=== PATIENT | male | born 1995 | race Caucasian/White ===

== ENCOUNTER 2022-02-04 08:00 | Outpatient (RCR) | payer OTHER, SELFPAY ==
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
--- NOTE | 2022-03-23 12:06 | MHC.PT.DC ---
[facility] [place] Office [place] Office [place] Office [address] Dylan Dawkins [address] [phone] F: [phone] F: [phone] F: [phone] F: [phone] Physical Therapy Discharge Report Diagnosis: dorsalgia Date of Surgery: Date of Evaluation: 12/22/21 Date of Discharge: 03/23/22 Treatments to Date: 8 Cancellations to Date: 0 No Shows to Date: 0 Discharge Status: Independent with HEP Visit Non-compliance Discharge Summary: Pt did not f/u with further visits and d/c at this time Electronically signed by: Urszula Briseno PT Please sign and return to therapist. Thank you for your referral.
== END 2022-03-23 12:07 | disposition home or self-care (01) ==
LOC: HO.PT 08:00
PROVIDERS: PCP Internal Medicine; Visit Provider Nurse Practitioner Family
DX: M54.9 Dorsalgia, unspecified (principal)
CPT/HCPCS: 97110; 97112; 97140; 97161

== ENCOUNTER 2022-02-08 12:03 | Outpatient (REF) | payer OTHER, SELFPAY ==
[2022-02-08 12:19] LABS: MANUAL DIFF FLAG NO
[2022-02-08 13:24] LABS: Basophils Percent Auto 0.4 % (0-2); Eosinophils Absolute Auto 0.1 X10*3/uL (0.0-0.4); Eosinophils Percent Auto 1.4 % (0-4); Hematocrit 42.7 % (42.0-52.0); Hemoglobin 14.2 g/dl (14.0-18.0); Imm Gran Abs Auto 0.01 X10*3/uL (0.00-0.03); Imm Gran Pct Auto 0.2 % (0.0-0.4); Lymphocytes Absolute Auto 1.6 X10*3/uL (1.2-4.9); Lymphocytes Percent Auto 32.3 % (20-40); Mean Corpuscular HGB Conc 33.3 g/dl (31.0-36.0); Mean Corpuscular Hemoglobin 29.8 pg (27.0-33.0); Mean Corpuscular Volume 89.7 fL (80.0-98.0); Monocytes Absolute Auto 0.4 X10*3/uL (0.1-1.2); Monocytes Percent Auto 7.9 % (2-11); Neutrophils Absolute Auto 2.9 x10*3/uL (2.0-8.3); Neutrophils Percent Auto 57.8 % (45-73); Platelet Count 243 X10*3/uL (160-400); Red Blood Count 4.76 X10*6/uL (4.60-5.80); Red Cell Distribution Width 12.1 % (11.0-16.0); White Blood Count 4.9 X10*3/uL (4.8-10.8)
[2022-02-08 13:47] LABS: Alanine Aminotransferase 25 U/L (0-40); Albumin Level 4.7 g/dL (3.5-5.0); Alkaline Phosphatase 58 U/L (39-117); Anion Gap 12 (12-20); Aspartate Amino Transferase 21 U/L (5-37); Bilirubin Total 0.7 mg/dL (0.0-1.0); Blood Urea Nitrogen 12 mg/dL (9-16); Calcium 9.4 mg/dL (8.4-10.2); Carbon Dioxide 27 mmol/L (22-29); Chloride 106 mmol/L (96-108); Cholesterol 189 mg/dL; Estimated Glomerular Filt Rate > 60; Glucose Random 103 mg/dL (60-115); HDL Cholesterol 84 mg/dL; LDL Cholesterol Calculated 99 mg/dl; Potassium 4.9 mmol/L (3.3-5.1); Sodium 140 mmol/L (135-145); Total Protein 7.1 g/dL (6.5-8.0); Triglycerides 32 mg/dL
[2022-02-08 14:08] LABS: Free T4 (Free Thyroxine) 0.93 ng/dL (0.71-1.85); Thyroid Stimulating Hormone 1.21 uIU/mL (0.32-4.0)
[2022-02-08 14:19] LABS: Folate 11.9 ng/mL (> or = 4.0); Vitamin B12 600 pg/mL (200-900)
== END 2022-02-08 12:04 | disposition home or self-care (01) ==
LOC: HO.LAB 12:03
PROVIDERS: PCP Internal Medicine; Visit Provider Internal Medicine
DX: K21.9 Gastro-esophageal reflux disease without esophagitis (principal); E78.00 Pure hypercholesterolemia, unspecified
CPT/HCPCS: 36415; 80053; 80061; 82607; 82746; 84439; 84443; 85025

== ENCOUNTER 2022-03-16 09:51 | Outpatient (REF) | payer OTHER, SELFPAY ==
--- NOTE | ~2022-03-16 | XR_ITS ---
EXAMINATION: XR THORACOLUMBAR SPINE CLINICAL INFORMATION: Radiculopathy. Pain COMPARISON: None TECHNIQUE: 3 views FINDINGS: There is normal thoracic kyphosis.. There is a hypoplastic T12 ribs There is anterior wedging of T7 vertebra of indeterminate age. Rest the vertebral heights and alignment is normal. There is mild loss of mid and lower dorsal spine disc heights. No lytic or sclerotic process seen. The paravertebral soft tissues are normal. XR/XR thoracic spine 2V IMPRESSION: Anterior wedging of T7 vertebra of indeterminate age. Hypoplastic T12 ribs. No visible acute fracture, dislocation or subluxation seen.
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
== END 2022-03-16 09:52 | disposition home or self-care (01) ==
LOC: HO.XRAY 09:51
PROVIDERS: PCP Internal Medicine; Visit Provider Physician Assistant
DX: S46.812D Strain of other muscles, fascia and tendons at shoulder and upper arm level, left arm, subsequent encounter (principal); M54.14 Radiculopathy, thoracic region; X58.XXXD Exposure to other specified factors, subsequent encounter
CPT/HCPCS: 72070; 73010

== ENCOUNTER → 2022-09-03 09:04 | Outpatient (BNVA) | payer OTHER, SELFPAY | PROVIDERS: PCP Internal Medicine; Visit Provider Surgery | DX: L05.91 Pilonidal cyst without abscess (principal) | CPT/HCPCS: 99202 ==

== ENCOUNTER 2022-10-05 19:47 | Outpatient (REF) | payer OTHER, SELFPAY ==
--- NOTE | ~2022-10-05 | MR_ITS ---
EXAMINATION: MR CERVICAL SPINE WITHOUT CONTRAST CLINICAL INFORMATION: Cervical radiculopathy. COMPARISON: None available. TECHNIQUE: MRI of the cervical spine was obtained using routine sequences without contrast. FINDINGS: Normal anatomic alignment. Moderate degenerative disc disease from C3-C6. Mild degenerative disc disease at C2-C3 and C6-C7. Associated mixed Modic type discogenic endplate changes including mild Modic type I discogenic edema at C5-C6. No additional suspicious marrow edema. The vertebral body heights are well-maintained. The spinal cord is normal in appearance. Limited evaluation of the soft tissues of the neck without demonstrated abnormalities. The flow voids of the major cervical vessels are maintained. Normal appearance of the cervicomedullary junction and visualized posterior fossa. SPINAL LEVELS: C2-C3: Normal annular contour. There is no uncovertebral joint arthropathy. There is no facet joint arthropathy. There is no neural foraminal stenosis. There is no spinal canal stenosis. C3-C4: Mild disc-osteophyte complex. There is no uncovertebral joint arthropathy. There is mild bilateral facet joint arthropathy. There is no neural foraminal stenosis. There is no spinal canal stenosis. C4-C5: Mild disc-osteophyte complex. There is mild right and no left uncovertebral joint arthropathy. There is mild bilateral facet joint arthropathy. There is mild right and no left neural foraminal stenosis. There is no spinal canal stenosis. C5-C6: Mild disc-osteophyte complex. There is mild bilateral uncovertebral joint arthropathy. There is moderate right and mild left facet joint arthropathy. There is mild bilateral neural foraminal stenosis. There is no spinal canal stenosis. C6-C7: Normal annular contour. There is mild left and no right uncovertebral joint arthropathy. There is mild facet joint arthropathy. There is mild left and no right neural foraminal stenosis. There is no spinal canal stenosis. C7-T1: Normal annular contour. There is no uncovertebral joint arthropathy. There is no facet joint arthropathy. There is no neural foraminal stenosis. There is no spinal canal stenosis. MR/MR cervical spine wo con IMPRESSION: Mild multilevel degenerative spondyloarthropathy of the cervical spine as described in detail above. Most notably, there are mild neural foraminal narrowings from C4-C7. No overt spinal canal stenosis or nerve root compression.
== END 2022-10-05 19:48 | disposition home or self-care (01) ==
LOC: HO.MRI 19:47
PROVIDERS: PCP Internal Medicine; Visit Provider Internal Medicine
DX: M54.12 Radiculopathy, cervical region (principal)
CPT/HCPCS: 72141

== ENCOUNTER → 2022-10-14 15:52 | Outpatient (BNVA) | payer OTHER, SELFPAY | PROVIDERS: PCP Internal Medicine; Visit Provider Nurse Practitioner Family | DX: K58.0 Irritable bowel syndrome with diarrhea (principal); K21.9 Gastro-esophageal reflux disease without esophagitis; Z79.899 Other long term (current) drug therapy | CPT/HCPCS: 99202 ==

== ENCOUNTER 2022-10-28 09:06 | Outpatient (REF) | payer OTHER, SELFPAY ==
[2022-10-28 13:51] LABS: Alanine Aminotransferase 35 U/L (0-40); Albumin Level 4.6 g/dL (3.5-5.0); Alkaline Phosphatase 77 U/L (39-117); Aspartate Amino Transferase 25 U/L (5-37); Bilirubin Direct < 0.2 mg/dL (0.0-0.5); Bilirubin Total 0.6 mg/dL (0.0-1.0); Lipase 15 U/L (8-78)
[2022-10-28 14:06] LABS: Folate 12.3 ng/mL (> or = 4.0); TSH reflex Free T4 1.66 uIU/mL (0.32-4.0); Vitamin B12 582 pg/mL (200-900)
[2022-10-29 15:06] LABS: H Pylori Breath Test Negative (Negative)
[2022-11-02 23:09] LABS: Vitamin D 25-OH, D2 <4 ng/mL; Vitamin D 25-OH, D3 36 ng/mL; Vitamin D 25-OH, Total 36 ng/mL (30-100)
[2022-11-06 12:48] LABS: Transglutaminase Ab IgG <1.0 U/mL; Transglutaminase IgA <1.0 U/mL
== END 2022-10-28 09:07 | disposition home or self-care (01) ==
LOC: HO.LAB 09:06
PROVIDERS: PCP Internal Medicine; Visit Provider Nurse Practitioner Family
DX: R10.9 Unspecified abdominal pain (principal); E55.9 Vitamin D deficiency, unspecified; K20.90 Esophagitis, unspecified without bleeding; K59.00 Constipation, unspecified; R19.7 Diarrhea, unspecified
CPT/HCPCS: 36415; 80076; 82306; 82607; 82746; 83013; 83690; 84443; 86003; 86364

== ENCOUNTER → 2022-11-18 14:59 | Outpatient (BNVA) | payer OTHER, SELFPAY | PROVIDERS: PCP Internal Medicine; Visit Provider Nurse Practitioner Family | DX: R19.7 Diarrhea, unspecified (principal); K21.9 Gastro-esophageal reflux disease without esophagitis | CPT/HCPCS: 99212 ==

== ENCOUNTER 2022-11-18 15:32 | Outpatient (REF) | payer OTHER, SELFPAY ==
[2022-11-18 17:58] LABS: C Reactive Protein 0.13 mg/dL (< or = 0.50)
== END 2022-11-18 15:33 | disposition home or self-care (01) ==
LOC: HO.LAB 15:32
PROVIDERS: Visit Provider Nurse Practitioner Family
DX: K58.9 Irritable bowel syndrome, unspecified (principal); R19.7 Diarrhea, unspecified; K21.9 Gastro-esophageal reflux disease without esophagitis
CPT/HCPCS: 36415; 86140

== ENCOUNTER 2023-06-13 16:10 | Outpatient (AMB) | payer OTHER, SELFPAY ==
[2023-06-13 16:14] VITALS: BP 119/64; PULSE 83; BMI 26.6
--- NOTE | 2023-06-13 16:14 | MHC.OFFVIS ---
Intake Vital Signs 06/13/23 16:14 Height 5 ft 6 in Weight 164 lb 9.328 oz BMI 26.6 BP 119/64 Blood Pressure Location Rt brachial Position Sitting Pulse 83 Intake Visit Reasons: 6 month fu Intake Note: Aneesh presents in office today in 6 months follow up GERD. CC: Patient reports having diarrhea every day and occasional nausea when he does not eat on time. He states GERD is well managed with medications. Denies other GI symptoms today. Casing Splitter Required: No Accompanied by: Self / Same As Patient Allergies Sulfa (Sulfonamide Antibiotics) Allergy (Unknown, Verified 06/13/23 16:18) unknown HPI 6 month fu HPI Details LAST VISIT: Diarrhea Patient continues to have loose stools. Not necessary postprandially. Patient denies any abdominal pain or cramping. Denies abdominal bloating postprandially. Patient denies any melena, hematochezia, unintentional weight loss or ribbon like stools. Will order CRP to rule out inflammatory processes. Will check for inflammatory bowel disease. Fecal calprotectin ordered. If positive patient will go for colonoscopy and upper endoscopy. Patient denies any family history of inflammatory bowel disease GERD (gastroesophageal reflux disease) Patient reports that when he was taking omeprazole he was feeling better less symptoms of acid reflux. I will send a script for omeprazole. Patient had no H pylori. If patient continues with symptoms of acid reflux we will send him for upper endoscopy. I will see patient in 6 months, sooner on as needed basis. Patient is agreeable to this plan and verbalizes understanding of instructions. He was given the opportunity to ask questions and all questions answered. TODAY'S VISIT Patient is here today for follow-up. Patient reports that he continues to have occasional postprandial loose stools. Patient did notice that when he changed some of the diet he was feeling little better. Patient denies any nausea or vomiting although reports occasional nausea if he does in eat for few hours. Patient is taking omeprazole daily. His symptoms of acid reflux are suppressed for the most part. Patient denies vomiting. Denies melena, hematochezia, unintentional weight loss or ribbon like stools. Patient had normal CRP, no H pylori. Patient reports occasional postprandial abdominal bloating ? [facility] Medical History Asthma Overweight (BMI 25.0-29.9) Fracture of left distal radius Surgical History [place] teeth removed Family History Father Lung cancer Mother Skin cancer Sister No problems noted. Sister No problems noted. Sister No problems noted. Maternal Grandmother No problems noted. Paternal Grandfather Lung cancer Maternal Aunt Breast cancer Maternal Uncle Prostate cancer Social History Housing: House Alcohol intake: current Alcohol intake frequency: holidays/special occasions only Patient Tobacco Use Status: Former Tobacco user Tobacco use type: Cigarette Years Smoked: quit 2015 e-Cigarette/Vaping Use: Never Used Second Hand Smoke Exposure: No Current occupational status: employed Cognitive needs: No Hearing needs: No Vision needs: Yes Review of Systems Const Denies weight gain and Denies weight loss ENT Reports no additional complaints, Denies dysphagia and Denies odynophagia Card Reports no additional complaints Resp Reports no additional complaints GI Denies abdominal pain, Denies belching, Denies melena, Reports bloating, Denies change in bowel habits, Denies dysphagia, Denies excessive flatus, Denies dyspepsia, Reports heartburn, Denies diarrhea, Reports loose stools, Reports nausea, Denies odynophagia and Denies vomiting Reports no additional complaints Musc Reports no additional complaints Neuro Reports no additional complaints Psych Reports no additional complaints Endo Reports no additional complaints Physical Exam Vital Signs: Last Vital Signs Pulse 83 06/13/23 16:14 BP 119/64 06/13/23 16:14 BMI result Body Mass Index 26.6 Const General: healthy appearing, no acute distress and well developed Nutritional Appearance: well nourished Orientation/consciousness: patient oriented x3 HEENT Head: Yes normal to inspection, Yes normocephalic and Yes atraumatic Face and sinus: Yes normal facial exam Mouth: Normal oral and palatal mucosa present Throat: Yes posterior oropharynx normal, Yes tonsils normal and Yes uvula midline Eyes General: appearance normal, both eyes and all related structures Neck Neck: Yes normal visual inspection, Yes full ROM and Yes trachea midline Thyroid: Thyroid normal Resp Effort & Inspection: normal respiratory effort, able to speak in complete sentences, no tracheal deviation and symmetric chest movement Auscultation: clear to auscultation bilaterally Cardio Rate: regular rate Heart sounds: S1 normal heart sound present and S2 normal heart sound present GI Inspection: Yes normal to inspection and No distended Palpation (GI): Soft to palpation, not firm, nontender and No hepatosplenomegaly present Auscultation: normal bowel sounds General: Yes no CVA tenderness Back/Spine/Pelvis Back: no CVA tenderness Skin General skin exam: elasticity normal, turgor normal and dry skin Neuro General: patient oriented x3 Psych Appearance: grossly normal Mental Status: mental status grossly normal Assessment & Plan Assessment & Plan (1) Diarrhea: Code(s): R19.7 - Diarrhea, unspecified Qualifiers: Diarrhea type: unspecified type Qualified Code(s): R19.7 - Diarrhea, unspecified (2) GERD (gastroesophageal reflux disease): Code(s): K21.9 - Gastro-esophageal reflux disease without esophagitis Qualifiers: Esophagitis presence: esophagitis presence not specified Qualified Code(s): K21.9 - Gastro-esophageal reflux disease without esophagitis (3) Postprandial abdominal bloating: Code(s): R14.0 - Abdominal distension (gaseous) (4) Nausea: Code(s): R11.0 - Nausea Plan Patient can continue taking omeprazole every morning half an hour before 1st meal of the day. Patient was encouraged to eat more often do not skip meals. Low FODMAP diet discussed with patient. Patient does not empty his bowels completely. Hence diarrhea as patient is unable to empty. Will send script for Senokot. Patient was encouraged to take Citrucel 2 tablets in the morning to help him bulk his stools. CRP was negative so unlikely IBD most likely irritable bowel with both diarrhea and constipation. Discussed with patient avoiding dietary triggers and late night snacking. Staying upright for minimum 3 hours after meals discussed with patient. Patient will think about going for upper endoscopy if symptoms will continue. Information regarding upper endoscopy procedure, what to expect before during and after the procedure given to patient. I will see him in 3 months, sooner on as needed basis. Patient is agreeable to this plan and verbalizes understanding of instructions. He was given the opportunity to ask questions and all questions answered. Thank you for allowing me to participate in his care Medications: New famotidine (Pepcid) 20 mg PO BEDTIME 30 tabs 3RF K21.9 - Gastro-esophageal reflux disease without esophagitis sennosides (Natural Senna Laxative) 17.2 mg (2 x 8.6 mg) PO BEDTIME 60 tabs 1RF constipation K59.00 - Constipation, unspecified Changed From methylcellulose (laxative) take it with full glass of water 500 mg PO DAILY 90 tabs 2RF K59.00 - Constipation, unspecified To methylcellulose (laxative) (Citrucel) take it with full glass of water 1,000 mg (2 x 500 mg) PO DAILY 180 tabs 2RF K59.00 - Constipation, unspecified Coding Level of Care Code Est Pt Level 4 (80190) Diagnoses Diarrhea, unspecified type R19.7 Diarrhea type: unspecified type Gastroesophageal reflux disease, unspecified whether esophagitis present K21.9 Esophagitis presence: esophagitis presence not specified Postprandial abdominal bloating R14.0 Nausea R11.0 Time Spent (min) 35 Comment 20 minutes spent with patient and additional 15 minutes spent reviewing his records
== END 2023-06-13 17:08 | disposition home or self-care (01) ==
PROVIDERS: Visit Provider Nurse Practitioner Family
DX: R19.7 Diarrhea, unspecified (principal); K21.9 Gastro-esophageal reflux disease without esophagitis; R14.0 Abdominal distension (gaseous); R11.0 Nausea
CPT/HCPCS: 99214

== ENCOUNTER → 2023-06-13 16:10 | Outpatient (BNVA) | payer OTHER, SELFPAY | PROVIDERS: Visit Provider Nurse Practitioner Family | DX: K21.9 Gastro-esophageal reflux disease without esophagitis (principal); R19.7 Diarrhea, unspecified; R14.0 Abdominal distension (gaseous); R11.0 Nausea | CPT/HCPCS: 99212 ==

== ENCOUNTER 2023-08-04 18:19 | Emergency (ER) | payer OTHER, SELFPAY ==
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
[2023-08-04 18:58] VITALS: BP 132/71; PULSE 90; RESP 16; TEMP 36.6; O2SAT 98; BMI 28.4
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
[2023-08-04 20:18] VITALS: BP 146/83; PULSE 91; RESP 16; TEMP 36.9; O2SAT 96
[2023-08-04] MEDS: Acetaminophen 325 MG TABLET 975 MG PO (20:20)
[2023-08-04] MEDS: Ibuprofen 400 MG TABLET PO (20:21)
[2023-08-04] MEDS: Diphth,Pertus(ACell),Tet Adult 0.5 ML SYRINGE IM (20:21)
[2023-08-04 21:57] VITALS: BP 113/62; PULSE 73; RESP 16; TEMP 36.7; O2SAT 98
[2023-08-04] MEDS: Lidocaine 4 % Patch ADH..PATCH 1 PATCH TRANSDERMA (22:58)
== END 2023-08-04 23:05 | disposition home or self-care (01) ==
PROVIDERS: Emergency Provider Student in an Organized Health Care Education/Training Program; PCP Internal Medicine
DX: Z04.1 Encounter for examination and observation following transport accident (principal); M62.838 Other muscle spasm; M79.18 Myalgia, other site; R51.9 Headache, unspecified
CPT/HCPCS: 70450; 71250; 72125; 90471; 90715; 99284

== ENCOUNTER 2023-08-16 11:13 | Outpatient (AMB) | payer OTHER, SELFPAY ==
[2023-08-16 11:19] VITALS: BP 150/80; PULSE 79; O2SAT 98; BMI 27.2
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
== END 2023-08-16 11:50 | disposition home or self-care (01) ==
PROVIDERS: PCP Internal Medicine; Visit Provider Internal Medicine
DX: M54.2 Cervicalgia (principal); M54.9 Dorsalgia, unspecified; V89.2XXD Person injured in unspecified motor-vehicle accident, traffic, subsequent encounter; Z04.3 Encounter for examination and observation following other accident
CPT/HCPCS: 99214

== ENCOUNTER 2023-08-30 13:50 | Outpatient (AMB) | payer OTHER, SELFPAY ==
[2023-08-30 13:54] VITALS: BP 132/70; PULSE 72; O2SAT 100; BMI 26.8
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
== END 2023-08-30 14:36 | disposition home or self-care (01) ==
PROVIDERS: PCP Internal Medicine; Visit Provider Internal Medicine
DX: M54.9 Dorsalgia, unspecified (principal); M54.2 Cervicalgia; V89.2XXD Person injured in unspecified motor-vehicle accident, traffic, subsequent encounter; Z04.2 Encounter for examination and observation following work accident
CPT/HCPCS: 99213

== ENCOUNTER 2023-09-12 15:58 | Outpatient (AMB) | payer OTHER, SELFPAY ==
[2023-09-12 16:01] VITALS: BP 131/74; PULSE 76; BMI 26.5
--- NOTE | 2023-09-12 16:01 | A.OFFVIS_ITS ---
Intake Vital Signs 09/12/23 16:01 Height 5 ft 6 in Weight 164 lb 0.383 oz BMI 26.5 BP 131/74 Blood Pressure Location Lt brachial Position Sitting Pulse 76 Intake Visit Reasons: 3 month follow up Intake Note: Aneesh presents in office today in 3 months follow up GERD. CC: Patient reports diarrhea and nausea are a little less . He also reports some abdominal bloating. Per patient GERD symptoms are well managed as long as he does not miss any dose of the omeprazole and famotidine. 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 Patient was encouraged to eat more often do not skip meals. Low FODMAP diet discussed with patient. Patient does not empty his bowels completely. Hence diarrhea as patient is unable to empty. Will send script for Senokot. Patient was encouraged to take Citrucel 2 tablets in the morning to help him bulk his stools. CRP was negative so unlikely IBD most likely irritable bowel with both diarrhea and constipation. Discussed with patient avoiding dietary triggers and late night snacking. Staying upright for minimum 3 hours after meals discussed with patient. Patient will think about going for upper endoscopy if symptoms will continue. Information regarding upper endoscopy procedure, what to expect before during and after the procedure given to patient. I will see him in 3 months, sooner on as needed basis. Patient is agreeable to this plan and verbalizes understanding of instructions. He was given the opportunity to ask questions and all questions answered. ? Thank you for allowing me to participate in his care Medications New famotidine (Pepcid) 20 mg PO BEDTIME 30 tabs 3RF K21.9 sennosides (Natural Senna Laxative) 17.2 mg (2 x 8.6 mg) PO BEDTIME 60 tabs 1RF constipation K59.00 Changed Changed From methylcellulose (laxative) take it with full glass of water 500 mg PO DAILY 90 tabs 2RF K59.00 Changed To methylcellulose (laxative) (Citrucel) take it with full glass of water 1,000 mg (2 x 500 mg) PO DAILY 180 tabs 2RF K59.00 TODAY'S VISIT: Patient is here today for follow-up. Patient reports that he has been feeling little better, however he continues to have occasional loose stools postprandially. Patient reports that he changed his diet, eating healthier. However he does report that he stopped taking Citrucel. He will try to start taking Citrucel again. He did notice help when he was taking it. Patient is taking omeprazole every morning and states that his symptoms of acid reflux are suppressed when he takes it. When he does not take it for day or 2 he reports that he will have epigastric burning and dyspepsia without dysphagia or jie nophagia. Patient reports that he is eating smaller meals and more often. Patient states that he is trying to prep his meals PFSH Medical History Asthma Overweight (BMI 25.0-29.9) Fracture of left distal radius Surgical History [place] teeth removed Family History Father Lung cancer Mother Skin cancer Sister No problems noted. Sister No problems noted. Sister No problems noted. Maternal Grandmother No problems noted. Paternal Grandfather Lung cancer Maternal Aunt Breast cancer Maternal Uncle Prostate cancer Social History Housing: House Alcohol intake: current Alcohol intake frequency: holidays/special occasions only Patient Tobacco Use Status: Former Tobacco user Tobacco use type: Cigarette Years Smoked: quit 2015 e-Cigarette/Vaping Use: Never Used Second Hand Smoke Exposure: No service: No Current occupational status: employed Cognitive needs: No Hearing needs: No Vision needs: Yes Review of Systems Const Denies weight gain and Denies weight loss ENT Reports no additional complaints, Denies dysphagia and Denies odynophagia Card Reports no additional complaints Resp Reports no additional complaints GI Denies abdominal pain, Denies belching, Denies melena, Denies bloating, Denies change in bowel habits, Denies dysphagia, Denies excessive flatus, Denies dyspepsia, Reports heartburn (Occasional), Denies diarrhea, Reports loose stools (Occasional), Denies nausea, Denies odynophagia and Denies vomiting Reports no additional complaints Musc Reports no additional complaints Neuro Reports no additional complaints Psych Reports no additional complaints Endo Reports no additional complaints Physical Exam Vital Signs: Last Vital Signs Pulse 76 09/12/23 16:01 BP 131/74 09/12/23 16:01 BMI result Body Mass Index 26.5 Const General: healthy appearing, no acute distress and well developed Nutritional Appearance: well nourished Orientation/consciousness: patient oriented x3 Resp Effort & Inspection: normal respiratory effort, able to speak in complete sentences, no tracheal deviation and symmetric chest movement Auscultation: clear to auscultation bilaterally Cardio Rate: regular rate GI Inspection: Yes normal to inspection and No distended Palpation (GI): Soft to palpation, not firm, nontender and No hepatosplenomegaly present Auscultation: normal bowel sounds General: Yes no CVA tenderness Back/Spine/Pelvis Back: no CVA tenderness Skin General skin exam: elasticity normal, turgor normal and dry skin Neuro General: patient oriented x3 Psych Appearance: grossly normal Mental Status: mental status grossly normal Assessment & Plan Assessment & Plan (1) Diarrhea: Code(s): R19.7 - Diarrhea, unspecified Qualifiers: Diarrhea type: unspecified type Qualified Code(s): R19.7 - Diarrhea, unspecified (2) GERD (gastroesophageal reflux disease): Code(s): K21.9 - Gastro-esophageal reflux disease without esophagitis Qualifiers: Esophagitis presence: esophagitis presence not specified Qualified Code(s): K21.9 - Gastro-esophageal reflux disease without esophagitis (3) Postprandial abdominal bloating: Code(s): R14.0 - Abdominal distension (gaseous) (4) Nausea: Code(s): R11.0 - Nausea (5) Postprandial epigastric pain: Code(s): R10.13 - Epigastric pain Plan Patient will continue taking omeprazole daily. I will send him for upper endoscopy to rule out gastritis, duodenitis, esophagitis, gastric or peptic ulcers, Chang's. Patient continues to have epigastric pain when he misses a dose of omeprazole even for 1 day. Continue diet elimination. Avoid dietary triggers and late night snacking. Staying upright for minimum 3 hours after meals discussed with patient. I will see him after the procedure, sooner on as needed basis. Patient is agreeable to this plan and verbalizes understanding of instructions. He was given the opportunity to ask questions and all questions answered. Thank you for allowing me to participate in his care Orders: Orders Hemoglobin A1c Today E11.9 - Type 2 diabetes mellitus without complications Medications: Refilled sennosides (Natural Senna Laxative) 17.2 mg (2 x 8.6 mg) PO BEDTIME 60 tabs 1RF constipation K59.00 - Constipation, unspecified methylcellulose (laxative) (Citrucel) take it with full glass of water 1,000 mg (2 x 500 mg) PO DAILY 180 tabs 2RF K59.00 - Constipation, unspecified omeprazole 20 mg PO DAILY 90 caps 2RF Coding Level of Care Code Est Pt Level 4 (94266) Diagnoses Diarrhea, unspecified type R19.7 Diarrhea type: unspecified type Gastroesophageal reflux disease, unspecified whether esophagitis present K21.9 Esophagitis presence: esophagitis presence not specified Postprandial abdominal bloating R14.0 Nausea R11.0 Postprandial epigastric pain R10.13 Time Spent (min) 35 Comment 20 minutes spent with patient and additional 15 minutes spent reviewing his records
== END 2023-09-12 16:26 | disposition home or self-care (01) ==
PROVIDERS: PCP Internal Medicine; Visit Provider Nurse Practitioner Family
DX: R19.7 Diarrhea, unspecified (principal); K21.9 Gastro-esophageal reflux disease without esophagitis; R14.0 Abdominal distension (gaseous); R11.0 Nausea; R10.13 Epigastric pain
CPT/HCPCS: 99214

== ENCOUNTER → 2023-09-12 15:58 | Outpatient (BNVA) | payer OTHER, SELFPAY | PROVIDERS: PCP Internal Medicine; Visit Provider Nurse Practitioner Family | DX: K21.9 Gastro-esophageal reflux disease without esophagitis (principal); R19.7 Diarrhea, unspecified; R14.0 Abdominal distension (gaseous); R11.0 Nausea; R10.13 Epigastric pain | CPT/HCPCS: 99212 ==

== ENCOUNTER 2023-09-26 12:31 | Day surgery (SDC) | payer OTHER, SELFPAY ==
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
[2023-09-26 13:06] VITALS: BMI 27.4
[2023-09-26 13:28] VITALS: BP 126/72; PULSE 71; RESP 16; TEMP 36.6; O2SAT 100
[2023-09-26] MEDS: Lactated Ringers 1,000 ML 100 ML IVCONT (13:30)
--- NOTE | 2023-09-26 13:47 | P.HPSUR_ITS ---
Pre-Procedural Eval Section A - 24 Hr Update-Section A only Date of Service: 09/26/23 The patient has been examined within 24 hours of the surgical procedure. The History & Physical has been completed within 30 days and I have reviewed it.: No Section B - Complete if H&P > 30 days Chief Complaint: GERD, post prandial bloating and diarrhea Relevant Family History (Specify if Yes): No Relevant Social History: Tobacco Use (former smoker) Present Medications: see Short Stay Collaborative assessment Medical History: Significant History (Asthma Overweight (BMI 25.0-29.9) Fracture of left distal radius) History of Previous Operations: Relevant previous surgery/procedure and date(s) ([place] teeth removed) Allergies: Allergies Allergy/AdvReac Type Severity Reaction Status Date / Time Sulfa (Sulfonamide Allergy Unknown unknown Verified 09/26/23 13:11 Antibiotics) Review of Systems Sugical H&P ROS: Negative: Constitution, Cardiovascular and Respiratory Exam Surgical H&P Exam: Normal: Heart, Normal: Lungs, Normal: Extremities and Normal: Abdomen Plan Diagnosis/Plan: Unchanged I have reviewed the history and physical and performed a pertinent physical examination on my patient. No changes have occurred unless specified. Time Spent With Patient Time: Total time managing care of this patient today ____ minutes.
--- NOTE | 2023-09-26 14:58 | P.OP_ITS ---
Operative Note Operative Note Date of Service: 09/26/23 Narrative: FLEXIBLE TRANSORAL UPPER GASTROINTESTINAL ENDOSCOPY WITH BIOPSIES Pre-op diagnosis: GERD, post prandial bloating and diarrhea Post-op diagnosis: GERD, hiatal hernia, gastritis Endoscopist:? Fior Queen MD Anesthesia:?MAC Consent: Indications for the procedure and potential complications of bleeding, perforation, reaction to medications and missed diagnosis were discussed with the patient and informed consent was obtained. Instrument: Olympus GIF H 190 mid size upper endoscope Monitoring: Vital signs and clinical assessment, continuous EKG monitoring, Pulse oximetry, Carbon Dioxide monitoring and blood pressure monitoring were done throughout the procedure. Procedure: The patient was placed in the left lateral decubitis position and pre-procedure medications were administered and a bite block was placed. The endoscope was inserted into the mouth and advanced under direct vision to the third part of duodenum. A careful inspection was made as the upper endoscope was withdrawn including a retroflexed examination of the proximal stomach; Findings and interventions are described below. Findings: Larynx: Edema and erythema of the arytenoid cartilages Esophagus: GE junction at 34 cms, small hiatal hernia 34 to 36 cms. Two 5 to 10 mm tongues and a 1 cms island of possible Chang's - biopsies were obtained for pathology and Tissue Cypher Stomach: Mild gastric erythema. Biopsies were obtained. Grade 2 flap valve on retroflexed examination of the cardia. Duodenum: Normal bulb and descending duodenum. Biopsies are obtained from 3rd part of the duodenum to check for celiac sprue Intervention: Biopsies as noted above Impression and Post Procedure Diagnosis: Endoscopy Findings: LARYNX: Changes suggestive of LPRD ESOPHAGUS: GE junction at 34 cms, small hiatal hernia 34 to 36 cms. Two 5 to 10 mm tongues and a 1 cms island of possible Chang's - biopsies were obtained for pathology and tissue cypher STOMACH: Moderate gastritis DUODENUM: Normal - biopsied to check for celiac sprue. Plan: Await pathology results. If biopsies show Chang's metaplasia, repeat EGD in 1 year. Patient has an appointment on 10/24/23 in the GI Clinic with Maricruz Orozco FNP- [place]. Above findings were reviewed with the patient and GERD and Hiatal hernia handouts were given in the discharge area If pt continues to have GERD symptoms, recommend increasing Omeprazole to 20 mg twice daily.
[2023-09-26 15:25] VITALS: BP 97/56; PULSE 60; RESP 12; TEMP 36.1; O2SAT 97
[2023-09-26 15:40] VITALS: BP 113/65; PULSE 60; RESP 16; TEMP 36.2; O2SAT 100
== END 2023-09-26 15:58 | disposition home or self-care (01) ==
PROVIDERS: PCP Internal Medicine; Visit Provider Internal Medicine Gastroenterology
PROC: 0DJ08ZZ Inspection of Upper Intestinal Tract, Via Natural or Artificial Opening Endoscopic (ICD-10-PCS; CPT 43235; principal; 2023-09-26 14:30)
DX: K29.60 Other gastritis without bleeding (principal); K44.9 Diaphragmatic hernia without obstruction or gangrene; K21.9 Gastro-esophageal reflux disease without esophagitis; Z87.19 Personal history of other diseases of the digestive system
CPT/HCPCS: 43239; 88305; 88313; 88342; J2250; J2704

== ENCOUNTER → 2023-09-26 12:31 | Outpatient (BNV) | payer OTHER, SELFPAY | PROVIDERS: PCP Internal Medicine; Visit Provider Internal Medicine Gastroenterology | DX: K21.9 Gastro-esophageal reflux disease without esophagitis (principal); K29.70 Gastritis, unspecified, without bleeding; R19.7 Diarrhea, unspecified | CPT/HCPCS: 43239 ==

== ENCOUNTER 2023-10-04 12:36 | Outpatient (AMB) | payer OTHER, SELFPAY ==
[2023-10-04 12:39] VITALS: BP 112/72; PULSE 73; O2SAT 98; BMI 27.6
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
== END 2023-10-04 13:06 | disposition home or self-care (01) ==
PROVIDERS: PCP Internal Medicine; Visit Provider Internal Medicine
DX: M54.9 Dorsalgia, unspecified (principal); M54.2 Cervicalgia; V89.2XXD Person injured in unspecified motor-vehicle accident, traffic, subsequent encounter; Z04.3 Encounter for examination and observation following other accident
CPT/HCPCS: 99213

== ENCOUNTER 2023-10-24 14:38 | Outpatient (AMB) | payer OTHER, SELFPAY ==
[2023-10-24 14:40] VITALS: BMI 27.3
--- NOTE | 2023-10-24 14:40 | A.OFFVIS_ITS ---
Intake Vital Signs 10/24/23 14:40 Height 5 ft 6 in Weight 169 lb 5.04 oz BMI 27.3 Blood Pressure Location Lt brachial Position Sitting Intake Visit Reasons: s/p egd Intake Note: Aneesh returns in follow up s/p EGD . CC: Pt underwent EGD by Dr. Queen on 09/26/23. Patient reports doing alright. He continues having diarrhea but states heartburn is good with Omeprazole Allergies Sulfa (Sulfonamide Antibiotics) Allergy (Unknown, Verified 10/24/23 14:44) unknown HPI s/p egd HPI Details LAST VISIT Diarrhea GERD (gastroesophageal reflux disease) Postprandial abdominal bloating Nausea Postprandial epigastric pain Plan Patient will continue taking omeprazole daily. I will send him for upper endoscopy to rule out gastritis, duodenitis, esophagitis, gastric or peptic ulcers, Chang's. Patient continues to have epigastric pain when he misses a dose of omeprazole even for 1 day. Continue diet elimination. Avoid dietary triggers and late night snacking. Staying upright for minimum 3 hours after meals discussed with patient. I will see him after the procedure, sooner on as needed basis. Patient is agreeable to this plan and verbalizes understanding of instructions. He was given the opportunity to ask questions and all questions answered. ? Thank you for allowing me to participate in his care Orders Orders Hemoglobin A1c Today E11.9 Medications Refilled sennosides (Natural Senna Laxative) 17.2 mg (2 x 8.6 mg) PO BEDTIME 60 tabs 1RF constipation K59.00 methylcellulose (laxative) (Citrucel) take it with full glass of water 1,000 mg (2 x 500 mg) PO DAILY 180 tabs 2RF K59.00 omeprazole 20 mg PO DAILY 90 caps 2RF UPPER ENDOSCOPY Findings: Larynx: Edema and erythema of the arytenoid cartilages Esophagus: GE junction at 34 cms, small hiatal hernia 34 to 36 cms. Two 5 to 10 mm tongues and a 1 cms island of possible Chang's - biopsies were obtained for pathology and Tissue Cypher Stomach: Mild gastric erythema. Biopsies were obtained. Grade 2 flap valve on retroflexed examination of the cardia. Duodenum: Normal bulb and descending duodenum. Biopsies are obtained from 3rd part of the duodenum to check for celiac sprue Intervention: Biopsies as noted above Impression and Post Procedure Diagnosis: Endoscopy Findings: LARYNX: Changes suggestive of LPRD ESOPHAGUS: GE junction at 34 cms, small hiatal hernia 34 to 36 cms. Two 5 to 10 mm tongues and a 1 cms island of possible Chang's - biopsies were obtained for pathology and tissue cypher STOMACH: Moderate gastritis DUODENUM: Normal - biopsied to check for celiac sprue. Plan: Await pathology results. If biopsies show Chang's metaplasia, repeat EGD in 1 year. Above findings were reviewed with the patient and GERD and Hiatal hernia handouts were given in the discharge area If pt continues to have GERD symptoms, recommend increasing Omeprazole to 20 mg twice daily. PATHOLOGY RESULTS Diagnosis A. Small bowel mucosa with preserved villi and no specific change; no evidence o f celiac disease. B. Gastric antrum, biopsy: Gastric antral mucosa with congestion and focal minimal chronic inactive inflammation; negative for H pylori, intestinal metaplasia and dysplasia. C. Esophagus, distal, biopsy: Squamous mucosa with hyperplasia and intraepithelial eosinophils (up to 9 per high-power field) consistent with reflux esophagitis, and columnar mucosa with mild-moderate chronic active inflammation and intestinal metaplasia consistent with Chang's mucosa; negative for dysplasia. TODAY'S VISIT Patient is here today for follow-up and to discuss upper endoscopy results. As mentioned above patient was diagnosed with gastritis and Chang's, GERD with esophagitis. PPI was increased to twice a day. Patient reports that his symptoms are better now that he is taking omeprazole twice a day. Patient is trying to avoid dietary triggers. Eating more simple food no spicy or fried. Patient reports occasional loose stools after meals. Encouraged previously to take fiber to help him bulk his stools. Patient denies any dyspepsia, dysphagia or odynophagia. Denies any other GI concerning symptoms. [facility] Medical History Asthma Overweight (BMI 25.0-29.9) Fracture of left distal radius Surgical History History of esophagogastroduodenoscopy (EGD) [place] teeth removed Family History Father Lung cancer Mother Skin cancer Sister No problems noted. Sister No problems noted. Sister No problems noted. Maternal Grandmother No problems noted. Paternal Grandfather Lung cancer Maternal Aunt Breast cancer Maternal Uncle Prostate cancer Social History Housing: House Alcohol intake: current Alcohol intake frequency: holidays/special occasions only Patient Tobacco Use Status: Former Tobacco user Tobacco use type: Cigarette Years Smoked: quit 2015 e-Cigarette/Vaping Use: Never Used Second Hand Smoke Exposure: No service: No Current occupational status: employed Cognitive needs: No Hearing needs: No Vision needs: Yes Review of Systems Const Denies weight gain and Denies weight loss ENT Reports no additional complaints, Denies dysphagia and Denies odynophagia Card Reports no additional complaints Resp Reports no additional complaints GI Denies abdominal pain, Denies belching, Denies melena, Denies bloating, Denies change in bowel habits, Denies dysphagia, Denies excessive flatus, Denies dyspepsia, Reports heartburn, Denies diarrhea, Reports loose stools (Occasional), Denies nausea, Denies odynophagia and Denies vomiting Reports no additional complaints Musc Reports no additional complaints Neuro Reports no additional complaints Psych Reports no additional complaints Endo Reports no additional complaints Physical Exam Vital Signs: BMI result Body Mass Index 27.3 Const General: healthy appearing, no acute distress and well developed Nutritional Appearance: well nourished Orientation/consciousness: patient oriented x3 Resp Effort & Inspection: normal respiratory effort, able to speak in complete senten jackie, no tracheal deviation and symmetric chest movement Auscultation: clear to auscultation bilaterally Cardio Rate: regular rate GI Inspection: Yes normal to inspection and No distended Palpation (GI): Soft to palpation, not firm, nontender and No hepatosplenomegaly present Auscultation: normal bowel sounds General: Yes no CVA tenderness Back/Spine/Pelvis Back: no CVA tenderness Skin General skin exam: elasticity normal, turgor normal and dry skin Neuro General: patient oriented x3 Psych Appearance: grossly normal Mental Status: mental status grossly normal Assessment & Plan Assessment & Plan (1) Barretts esophagus: Code(s): K22.70 - Chang's esophagus without dysplasia Qualifiers: Chang's esophagus type: without dysplasia Qualified Code(s): K22.70 - Chang's esophagus without dysplasia (2) GERD (gastroesophageal reflux disease): Code(s): K21.9 - Gastro-esophageal reflux disease without esophagitis Qualifiers: Esophagitis presence: esophagitis presence not specified Qualified Code(s): K21.9 - Gastro-esophageal reflux disease without esophagitis Plan Continue omeprazole twice a day. Continue avoiding dietary triggers late night snacking. Staying upright for minimal 3 hours after meals discussed with patient. Patient can take Pepcid on as-needed basis at bedtime. Patient was encouraged to follow FODMAP diet. Citrucel to help her bulk stools. I will see him in 6 months, sooner on as needed basis. Patient is agreeable to this plan and verbalizes understanding of instructions. He was given the opportunity to ask questions and all questions answered. Thank you for allowing me to participate in his care Coding Level of Care Code Est Pt Level 4 (60215) Diagnoses Chang's esophagus without dysplasia K22.70 Chang's esophagus type: without dysplasia Gastroesophageal reflux disease, unspecified whether esophagitis present K21.9 Esophagitis presence: esophagitis presence not specified Time Spent (min) 35 Comment 20 minutes spent with patient and additional 15 minutes spent reviewing his records
== END 2023-10-24 15:48 | disposition home or self-care (01) ==
PROVIDERS: PCP Internal Medicine; Visit Provider Nurse Practitioner Family
DX: K22.70 Barrett's esophagus without dysplasia (principal); K21.9 Gastro-esophageal reflux disease without esophagitis
CPT/HCPCS: 99214

== ENCOUNTER → 2023-10-24 14:38 | Outpatient (BNVA) | payer OTHER, SELFPAY | PROVIDERS: PCP Internal Medicine; Visit Provider Nurse Practitioner Family | DX: K22.70 Barrett's esophagus without dysplasia (principal); K21.9 Gastro-esophageal reflux disease without esophagitis | CPT/HCPCS: 99212 ==

== ENCOUNTER 2023-11-08 12:40 | Outpatient (AMB) | payer OTHER, SELFPAY ==
[2023-11-08 12:46] VITALS: BP 118/78; PULSE 83; O2SAT 99; BMI 28.1
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
== END 2023-11-08 13:11 | disposition home or self-care (01) ==
PROVIDERS: PCP Internal Medicine; Visit Provider Internal Medicine
DX: M54.9 Dorsalgia, unspecified (principal); V89.2XXD Person injured in unspecified motor-vehicle accident, traffic, subsequent encounter
CPT/HCPCS: 99213

== ENCOUNTER 2023-12-06 15:07 | Outpatient (AMB) | payer OTHER, SELFPAY ==
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
[2023-12-06 15:16] VITALS: BP 138/84; PULSE 77; O2SAT 100; BMI 28.1
== END 2023-12-06 15:42 | disposition home or self-care (01) ==
PROVIDERS: PCP Internal Medicine; Visit Provider Internal Medicine
DX: M54.9 Dorsalgia, unspecified (principal); V89.2XXD Person injured in unspecified motor-vehicle accident, traffic, subsequent encounter; Z04.3 Encounter for examination and observation following other accident
CPT/HCPCS: 99213

== ENCOUNTER 2023-12-12 15:55 | Outpatient (REF) | payer OTHER, SELFPAY ==
--- NOTE | ~2023-12-12 | XR_ITS ---
EXAMINATION: XR HIP, RIGHT CLINICAL INFORMATION: Evaluate for degenerative joint disease COMPARISON: None available. TECHNIQUE: Two views of the right hip. FINDINGS: No fracture. Alignment is anatomic. Hip joint space is maintained. Soft tissues are unremarkable. Mild degenerative change of the pubic symphysis is noted. XR/XR hip RT min 2V IMPRESSION: No significant bony abnormality of the right hip.
== END 2023-12-12 15:56 | disposition home or self-care (01) ==
LOC: HO.XRAY 15:55
PROVIDERS: Visit Provider Physical Medicine & Rehabilitation
DX: M84.851 Other disorders of continuity of bone, right pelvic region and thigh (principal)
CPT/HCPCS: 73502

== ENCOUNTER 2024-01-17 11:39 | Outpatient (AMB) | payer OTHER, SELFPAY ==
[2024-01-17 11:40] VITALS: BP 124/68; PULSE 80; O2SAT 98; BMI 27.9
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
== END 2024-01-17 12:12 | disposition home or self-care (01) ==
PROVIDERS: PCP Internal Medicine; Visit Provider Internal Medicine
DX: M54.9 Dorsalgia, unspecified (principal); V89.2XXD Person injured in unspecified motor-vehicle accident, traffic, subsequent encounter; M54.2 Cervicalgia; M25.551 Pain in right hip; S46.812D Strain of other muscles, fascia and tendons at shoulder and upper arm level, left arm, subsequent encounter
CPT/HCPCS: 99213

== ENCOUNTER 2024-02-02 11:48 | Outpatient (AMB) | payer OTHER, SELFPAY ==
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
[2024-02-02 11:54] VITALS: BMI 27.4
== END 2024-02-02 12:58 | disposition home or self-care (01) ==
PROVIDERS: PCP Internal Medicine; Visit Provider Physical Medicine & Rehabilitation
DX: M79.18 Myalgia, other site (principal); R20.2 Paresthesia of skin; M50.90 Cervical disc disorder, unspecified, unspecified cervical region
CPT/HCPCS: 99204

== ENCOUNTER → 2024-02-02 11:48 | Outpatient (BNVA) | payer OTHER, SELFPAY | PROVIDERS: PCP Internal Medicine; Visit Provider Physical Medicine & Rehabilitation ==

== ENCOUNTER 2024-02-09 11:43 | Outpatient (AMB) | payer OTHER, SELFPAY ==
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
[2024-02-09 11:50] VITALS: BMI 27.4
== END 2024-02-09 11:59 | disposition home or self-care (01) ==
PROVIDERS: PCP Internal Medicine; Visit Provider Physical Medicine & Rehabilitation
DX: M25.512 Pain in left shoulder (principal); M79.18 Myalgia, other site
CPT/HCPCS: 20553

== ENCOUNTER → 2024-02-09 11:43 | Outpatient (BNVA) | payer OTHER, SELFPAY | PROVIDERS: PCP Internal Medicine; Visit Provider Physical Medicine & Rehabilitation | DX: M79.18 Myalgia, other site (principal) | CPT/HCPCS: 20553 ==

== ENCOUNTER 2024-02-14 11:04 | Outpatient (AMB) | payer OTHER, SELFPAY ==
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
== END 2024-02-14 11:25 | disposition home or self-care (01) ==
PROVIDERS: PCP Internal Medicine; Visit Provider Physical Medicine & Rehabilitation
DX: M54.2 Cervicalgia (principal); M79.18 Myalgia, other site
CPT/HCPCS: 20553

== ENCOUNTER → 2024-02-14 11:04 | Outpatient (BNVA) | payer OTHER, SELFPAY | PROVIDERS: PCP Internal Medicine; Visit Provider Physical Medicine & Rehabilitation | DX: M79.18 Myalgia, other site (principal) | CPT/HCPCS: 20553 ==

== ENCOUNTER 2024-02-22 11:52 | Outpatient (AMB) | payer OTHER, SELFPAY ==
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
== END 2024-02-22 12:09 | disposition home or self-care (01) ==
PROVIDERS: PCP Internal Medicine; Visit Provider Physical Medicine & Rehabilitation
DX: M79.18 Myalgia, other site (principal); M25.512 Pain in left shoulder; M25.511 Pain in right shoulder
CPT/HCPCS: 20553

== ENCOUNTER → 2024-02-22 11:52 | Outpatient (BNVA) | payer OTHER, SELFPAY | PROVIDERS: PCP Internal Medicine; Visit Provider Physical Medicine & Rehabilitation | DX: M79.18 Myalgia, other site (principal) | CPT/HCPCS: 20553 ==

== ENCOUNTER 2024-02-23 10:55 | Outpatient (AMB) | payer OTHER, SELFPAY ==
[2024-02-23 10:57] VITALS: BP 102/62; PULSE 68; O2SAT 98; BMI 27.4
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
== END 2024-02-23 11:47 | disposition home or self-care (01) ==
PROVIDERS: PCP Internal Medicine; Visit Provider Internal Medicine
DX: M79.18 Myalgia, other site (principal); V89.2XXD Person injured in unspecified motor-vehicle accident, traffic, subsequent encounter
CPT/HCPCS: 99213

== ENCOUNTER 2024-03-22 10:22 | Outpatient (AMB) | payer OTHER, SELFPAY ==
[2024-03-22 10:44] VITALS: BP 128/76; PULSE 80; O2SAT 99; BMI 28.1
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
== END 2024-03-22 11:13 | disposition home or self-care (01) ==
PROVIDERS: PCP Internal Medicine; Visit Provider Internal Medicine
DX: M79.18 Myalgia, other site (principal); M54.9 Dorsalgia, unspecified; M25.551 Pain in right hip; V89.2XXD Person injured in unspecified motor-vehicle accident, traffic, subsequent encounter
CPT/HCPCS: 99213

== ENCOUNTER 2024-04-19 12:20 | Outpatient (AMB) | payer OTHER, SELFPAY ==
[2024-04-19 12:33] VITALS: BP 122/72; PULSE 57; O2SAT 98; BMI 27.8
--- NOTE | 2024-04-19 12:33 | A.OFFPC_ITS ---
Vital Signs 04/19/24 12:33 Height 5 ft 6 in Weight 172 lb BMI 27.8 BP 122/72 Blood Pressure Location Lt brachial Position Sitting Pulse 57 Pulse Source Pulse Oximeter Pulse Oximetry (%) 98 Oxygen Delivery Method Room Air Intake Visit Reasons: Annual Exam Allergies Sulfa (Sulfonamide Antibiotics) Allergy (Unknown, Verified 04/19/24 12:33) unknown Medication List - Last Reconciled 04/19/24 by Tripp Hernandez MD albuterol sulfate 90 mcg/actuation (ProAir HFA) 2 puffs inhalation QID PRN celecoxib (Celebrex) 200 mg PO DAILY cyclobenzaprine 5 mg PO BID PRN loperamide (Imodium A-D) 2 mg PO Q6H PRN omeprazole 20 mg PO BID Tobacco use date assessed: 01/17/24 Dental Screening Dental Screen Date: 01/17/24 HPI Annual Exam HPI Details 28-year-old overweight male with a histo ry of asthma GERD Barretts esophagus coming in for physical exam PFSH Medical History Cervical disc disease Myofascial pain Asthma Overweight (BMI 25.0-29.9) Fracture of left distal radius Surgical History History of esophagogastroduodenoscopy (EGD) [place] teeth removed Family History Father Lung cancer Mother Skin cancer Sister No problems noted. Sister No problems noted. Sister No problems noted. Maternal Grandmother No problems noted. Paternal Grandfather Lung cancer Maternal Aunt Breast cancer Maternal Uncle Prostate cancer Social History (Updated 04/19/24 @ 12:51 by Tripp Hernandez MD) Housing: House Alcohol intake: current Alcohol intake frequency: holidays/special occasions only Comment: last time november 2023 states stopped (03/2024) Patient Tobacco Use Status: Former Tobacco user Tobacco use type: Cigarette Years Smoked: quit 2015 marijuana e-Cigarette/Vaping Use: Never Used Second Hand Smoke Exposure: No service: No Current occupational status: employed Current occupation: rt hand dominant Cognitive needs: No Hearing needs: No Vision needs: Yes Questionnaire PHQ-9 Over the last 2 weeks, how often have you been bothered by any of the following problems? 1. Little interest or pleasure in doing things: not at all 2. Feeling down, depressed, or hopeless: not at all 3. Trouble falling or staying asleep, or sleeping too much: not at all 4. Feeling tired or having little energy: not at all 5. Poor appetite or overeating: not at all 6. Feeling bad about yourself - or that you are a failure or have let yourself or your family down: not at all 7. Trouble concentrating on things, such as reading the newspaper or watching television: not at all 8. Moving or speaking so slowly that other people could have noticed. Or the opposite - being so fidgety or restless that you have been moving around a lot more than usual: not at all 9. Thoughts that you would be better off or of hurting yourself in some way: not at all Total score: 0 Depression Screening Interpretation: Negative Depression Screening Done: Yes Source: Developed by Drs. Ferdinand Lee, Lizet Murillo, Carlitos Sam and colleagues, with an educational laurel from [employer]. Thrive Questionnaire Date Thrive assessed: 12/06/23 AUDIT C Alcohol Use Questionnaire (AUDIT-C) 1. How often do you have a drink containing alcohol?: Monthly or less 2. How many drinks containing alcohol do you have on a typical day when you are drinking?: 1 or 2 3. How often do you have six or more drinks on one occasion?: Never Total Score: 1 IVET-7 AMB Questionnaire IVET-7 Date IVET - 7 assessed: 10/04/23 Source: Developed by Drs. Ferdinand Lee, Lizet Murillo, Carlitos Sam and colleagues, with an educational laurel from [employer]. Review of Systems Const Denies poor appetite and Denies weakness Eyes Denies no additional complaints ENT Reports Normal hearing present, Denies dizziness, Denies nasal congestion, Denies tinnitus and Denies sore throat Card Denies chest pain, Denies syncope, Denies rapid heart rate and Denies dyspnea Resp Denies cough and Denies dyspnea GI Denies change in stool character, Reports constipation, Denies diarrhea, Denies nausea and Denies vomiting Denies dysuria and Denies urinary frequency Neuro Reports Normal hearing present, Denies confusion, Denies dizziness, Denies syncope and Denies weakness Psych Denies confusion Physical exam (Primary Care) Vital Signs: Last Vital Signs Pulse 57 04/19/24 12:33 BP 122/72 04/19/24 12:33 Pulse Ox 98 04/19/24 12:33 Oxygen Delivery Method Room Air 04/19/24 12:33 BMI result Body Mass Index 27.8 Tobacco/Smoking Status: Tobacco use Status Tobacco use date assessed 01/17/24 04/19/24 12:37 Patient Tobacco Use Status Former Tobacco user 04/19/24 12:37 Tobacco use type Cigarette 04/19/24 12:37 e-Cigarette/Vaping Use Never Used 04/19/24 12:37 PHQ-9: PHQ-9 Score PHQ-9: Total score 0 04/19/24 12:37 Depression Screening Interpretation: Negative Thrive Assessment: Date of Thrive Assessment Date Thrive assessed 12/06/23 04/19/24 12:37 Const General: No confusion Orientation/consciousness: No confusion HENMT Head: Yes normocephalic Ears: external ears normal and TM's normal bilaterally Face and sinus: Yes normal facial exam Mouth: moist mucous membranes Throat: Yes tonsils normal Eyes Conjunctivae: conjunctivae normal Pupils: Equal, round and reactive pupils present and Pupil accommodation reflex normal Direct Ophthalmoscopy: normal light reflex Neck Neck: No lymphadenopathy Thyroid: Thyroid normal Chest Chest palpation & inspection: normal inspection of the chest Resp Effort & Inspection: normal respiratory effort and no audible wheezes Auscultation: clear to auscultation bilaterally, no crackles, no wheezes and lung sounds not diminished Cardio Rate: regular rate Rhythm: regular rhythm Peripheral pulses: radial pulses present and dorsalis pedis present GI Other: visual rectal negative Palpation (GI): no masses Auscultation: normal bowel sounds and normoactive bowel sounds Male General Exam: Yes normal external exam Skin General skin exam: no rashes or lesions noted Rashes: no rashes Neuro General: No confusion Cranial nerves: Yes Equal, round and reactive pupils present and Yes Normal hearing present Cognition (Neuro): normal cognition Gait exam (Neuro): Normal gait present Motor exam (neuro): 5/5 motor strength present throughout Deep tendon reflexes (DTR's): Right brachioradialis reflex intensity grade: 2+, Left brachioradialis reflex intensity grade: 2+, Right patellar reflex intensity grade: 2+ and Left patellar reflex intensity grade: 2+ Extrem Other: L big toe nail thick and discolored General: No edema Assessment and Plan Assessment & Plan (1) Annual physical exam: Code(s): Z00.00 - Encounter for general adult medical examination without abnormal findings Plan: Patient is advised to eat healthy, keep well hydrated, keep active and have adequate sleep. (2) Barretts esophagus: Code(s): K22.70 - Chang's esophagus without dysplasia Qualifiers: Chang's esophagus type: without dysplasia Qualified Code(s): K22.70 - Chang's esophagus without dysplasia Plan: Avoid the foods that causes that usually spicy foods, tomato products, juices, coffee, soda and foods that your sensitive to. After eating do not lie down, allow 3-4 hours before in lie down. And keep the head of bed above 30 degrees to avoid the acid from going up. On omeprazole 20 mg twice a day and famotidine 20 mg at bedtime (3) Asthma: Code(s): J45.909 - Unspecified asthma, uncomplicated Plan: Continue with albuterol as needed (4) Overweight (BMI 25.0-29.9): Code(s): E66.3 - Overweight Plan: Diet and exercise (5) Erectile disorder: Code(s): N52.9 - Male erectile dysfunction, unspecified (6) Onychomycosis: Comment: L big toe Code(s): B35.1 - Tinea unguium Orders: Orders Complete Blood Count Auto Diff Today K22.70 - Chang's esophagus without dysplasia Comprehensive Met. Panel Today K22.70 - Chang's esophagus without dysplasia Free T4 (Free Thyroxine) Today K22.70 - Chang's esophagus without dysplasia Lipid Panel Today E78.00 - Pure hypercholesterolemia, unspecified, K22.70 - Chang's esophagus without dysplasia Thyroid Stimulating Hormone Today K22.70 - Chang's esophagus without dysplasia Testosterone, Total Today N52.9 - Male erectile dysfunction, unspecified Vitamin B12 and Folate Today K22.70 - Chang's esophagus without dysplasia Hemoglobin A1c Today K22.70 - Chang's esophagus without dysplasia UA w Microscopic Today K22.70 - Chang's esophagus without dysplasia Medications: New terbinafine HCl 250 mg PO DAILY 12 weeks 84 tabs 1RF B35.1 - Tinea unguium Refilled omeprazole 20 mg PO BID 60 caps 2RF Coding Level of Care Code Est Pt Prev Care 18-39y(78852) Diagnoses Annual physical exam Z00.00 Chang's esophagus without dysplasia K22.70 Chang's esophagus type: without dysplasia Asthma J45.909 Overweight (BMI 25.0-29.9) E66.3 Erectile disorder N52.9 Onychomycosis B35.1
== END 2024-04-19 13:23 | disposition home or self-care (01) ==
PROVIDERS: PCP Internal Medicine; Visit Provider Internal Medicine
DX: Z00.00 Encounter for general adult medical examination without abnormal findings (principal); K22.70 Barrett's esophagus without dysplasia; J45.909 Unspecified asthma, uncomplicated; E66.3 Overweight; N52.9 Male erectile dysfunction, unspecified; B35.1 Tinea unguium
CPT/HCPCS: 99395

== ENCOUNTER 2024-04-20 15:55 | Outpatient (AMB) | payer OTHER, SELFPAY ==
[2024-04-20 15:56] VITALS: BP 128/72; PULSE 74; O2SAT 97; BMI 27.4
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
== END 2024-04-20 16:31 | disposition home or self-care (01) ==
PROVIDERS: PCP Internal Medicine
DX: M54.9 Dorsalgia, unspecified (principal)
CPT/HCPCS: 99213

== ENCOUNTER 2024-04-26 11:07 | Outpatient (AMB) | payer OTHER, SELFPAY ==
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
[2024-04-26 11:18] VITALS: BMI 27.4
== END 2024-04-26 11:25 | disposition home or self-care (01) ==
PROVIDERS: PCP Internal Medicine; Visit Provider Physical Medicine & Rehabilitation
DX: M79.18 Myalgia, other site (principal)
CPT/HCPCS: 99212

== ENCOUNTER → 2024-04-26 11:07 | Outpatient (BNVA) | payer OTHER, SELFPAY | PROVIDERS: PCP Internal Medicine; Visit Provider Physical Medicine & Rehabilitation ==

== ENCOUNTER 2024-05-15 11:55 | Outpatient (REF) | payer OTHER, SELFPAY ==
[2024-05-15 12:14] LABS: MANUAL DIFF FLAG NO
[2024-05-15 12:38] LABS: Basophils Percent Auto 0.4 % (0-2); Eosinophils Absolute Auto 0.1 X10*3/uL (0.0-0.4); Eosinophils Percent Auto 2.4 % (0-4); Hematocrit 43.8 % (42.0-52.0); Hemoglobin 14.9 g/dl (14.0-18.0); Imm Gran Abs Auto 0.01 X10*3/uL (0.00-0.03); Imm Gran Pct Auto 0.2 % (0.0-0.4); Lymphocytes Absolute Auto 1.8 X10*3/uL (1.2-4.9); Lymphocytes Percent Auto 32.2 % (20-40); Mean Corpuscular Hemoglobin 28.9 pg (27.0-33.0); Mean Corpuscular Volume 84.9 fL (80.0-98.0); Mean Platelet Volume 9.8 fL (9.4-12.4); Monocytes Absolute Auto 0.4 X10*3/uL (0.1-1.2); Monocytes Percent Auto 7.4 % (2-11); Neutrophils Absolute Auto 3.2 x10*3/uL (2.0-8.3); Neutrophils Percent Auto 57.4 % (45-73); Platelet Count 198 X10*3/uL (160-400); Red Blood Count 5.16 X10*6/uL (4.60-5.80); Red Cell Distribution Width 12.4 % (11.0-16.0); White Blood Count 5.5 X10*3/uL (4.8-10.8)
[2024-05-15 13:00] LABS: Estimated Average Glucose 97 mg/dL
[2024-05-15 13:14] LABS: Alanine Aminotransferase 26 U/L (0-40); Albumin Level 4.5 g/dL (3.5-5.0); Alkaline Phosphatase 68 U/L (39-117); Aspartate Amino Transferase 18 U/L (5-37); Bilirubin Total 0.7 mg/dL (0.0-1.0); Blood Urea Nitrogen 17 mg/dL (9-16); Calcium 9.7 mg/dL (8.4-10.2); Carbon Dioxide 26 mmol/L (22-29); Chloride 108 mmol/L (96-108); Cholesterol 198 mg/dL (<200); Estimated Glomerular Filt Rate > 60; Glucose Random 98 mg/dL (60-115); HDL Cholesterol 53 mg/dL (>40); LDL Cholesterol Calculated 133 mg/dL (<100); Potassium 4.5 mmol/L (3.3-5.1); Sodium 140 mmol/L (135-145); Total Protein 7.2 g/dL (6.5-8.0); Triglycerides 64 mg/dL (<150)
[2024-05-15 13:23] LABS: Free T4 (Free Thyroxine) 0.95 ng/dL (0.71-1.85); Thyroid Stimulating Hormone 1.61 uIU/mL (0.32-4.0)
[2024-05-15 13:35] LABS: Appearance Urine Clear; Bacteria Urine None Seen (None Seen); Color Urine Yellow; Glucose Urine UA Negative (Negative); Hyaline Casts Urine 0-2 /LPF (0-2); Leukocyte Esterase Urine Negative (Negative); Nitrite Urine Negative (Negative); RBC Urine 0-2 /HPF (0-2); Specific Gravity - Urine 1.015 (1.005-1.025); Squamous Epithelial Cell Urine 0-2 /HPF (0-2); Urine Blood Negative (Negative); Urine Ketones Negative (Negative); Urine Protein Negative (Neg-Trace); WBC Urine 0-5 /HPF (0-5)
[2024-05-15 13:36] LABS: Folate 10.2 ng/mL (> or = 4.0); Vitamin B12 866 pg/mL (200-900)
[2024-05-15 15:06] LABS: Anion Gap 13 (12-20)
[2024-05-15 15:07] LABS: Total Hemoglobin (HGBA1C) 3697.5246 umol/L
[2024-05-20 13:34] LABS: Testosterone, Total 577 ng/dL (250-1100)
== END 2024-05-15 11:56 | disposition home or self-care (01) ==
LOC: HO.LAB 11:55
PROVIDERS: PCP Internal Medicine; Visit Provider Internal Medicine
DX: K22.70 Barrett's esophagus without dysplasia (principal); E78.00 Pure hypercholesterolemia, unspecified; N52.9 Male erectile dysfunction, unspecified
CPT/HCPCS: 36415; 80053; 80061; 81001; 82607; 82746; 83036; 84403; 84439; 84443; 85025

== ENCOUNTER 2024-05-18 15:30 | Outpatient (AMB) | payer OTHER, SELFPAY ==
[2024-05-18 15:34] VITALS: BP 136/76; PULSE 66; O2SAT 99; BMI 27.9
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
== END 2024-05-18 16:05 | disposition home or self-care (01) ==
PROVIDERS: PCP Internal Medicine
DX: M50.90 Cervical disc disorder, unspecified, unspecified cervical region (principal); M79.18 Myalgia, other site

== ENCOUNTER → 2024-05-18 15:30 | Outpatient (BNVA) | payer OTHER, SELFPAY | PROVIDERS: PCP Internal Medicine | DX: M50.90 Cervical disc disorder, unspecified, unspecified cervical region (principal); M79.18 Myalgia, other site ==

== ENCOUNTER 2024-08-17 15:30 | Outpatient (AMB) | payer OTHER, SELFPAY ==
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
[2024-08-17 15:44] VITALS: BP 130/70; PULSE 73; O2SAT 99; BMI 27.8
== END 2024-08-17 16:06 | disposition home or self-care (01) ==
PROVIDERS: PCP Internal Medicine
DX: M79.18 Myalgia, other site (principal); Z04.3 Encounter for examination and observation following other accident

== ENCOUNTER → 2024-08-17 15:30 | Outpatient (BNVA) | payer OTHER, SELFPAY | PROVIDERS: PCP Internal Medicine ==

== ENCOUNTER 2024-11-27 16:25 | Outpatient (AMB) | payer OTHER, SELFPAY ==
--- NOTE | 2024-11-27 16:27 | A.OFFVIS_ITS ---
Vital Signs 11/27/24 16:38 Height 5 ft 6 in Weight 162 lb 8 oz BMI 26.2 BP 130/60 Blood Pressure Location Rt brachial Position Sitting Pulse 64 Pulse Source Pulse Oximeter Pulse Oximetry (%) 98 Oxygen Delivery Method Room Air Intake Visit Reasons: 6 MO F/U R/S 04/2024 Intake Note: ESTABLISHED PATIENT for Chang's and GERD mgmt. Chief Complaint; C/O chronic sx (IBS-D) without change in presentation since last visit. Pt states that he did attempt use of fiber gummies but did not react well to them. Advised pt that we can discuss alternative formats with the provider. Pt also due to discuss egd as this was supposed to occur at most recent OV which was r/s per pt. Vibration Technician Required: No Accompanied by: Self / Same As Patient Allergies Sulfa (Sulfonamide Antibiotics) Allergy (Unknown, Verified 11/27/24 16:28) unknown HPI HPI 6 MO F/U R/S 04/2024: Details: LAST VISIT: Barretts esophagus GERD (gastroesophageal reflux disease) Plan Continue omeprazole twice a day. Continue avoiding dietary triggers late night snacking. Staying upright for minimal 3 hours after meals discussed with patient. Patient can take Pepcid on as-needed basis at bedtime. Patient was encouraged to follow FODMAP diet. Citrucel to help her bulk stools. I will see him in 6 months, sooner on as needed basis. Patient is agreeable to this plan and verbalizes understanding of instructions. He was given the opportunity to ask questions and all questions answered. ? TODAY'S VISIT Patient is here today for follow-up. Patient continues to have postprandial abdominal bloating and occasional diarrhea. CRP checked in the past and that was normal. Patient unsure of what kind of food to eat. Previously was given follow FODMAP diet list and food that was recommended as well as list of food to avoid. Symptoms of acid reflux suppressed with omeprazole. Patient was diagnosed with Chang's esophagus her by biopsy in August of 2023 and recommendation was made for patient to repeat upper endoscopy 1 year. Patient denies any melena, hematochezia, unintentional weight loss or ribbon like stools. Denies any dyspepsia, dysphagia or odynophagia. [facility] Medical History Cervical disc disease Myofascial pain Asthma Overweight (BMI 25.0-29.9) Fracture of left distal radius Surgical History History of esophagogastroduodenoscopy (EGD) [place] teeth removed Family History Father Lung cancer Mother Skin cancer Sister No problems noted. Sister No problems noted. Sister No problems noted. Maternal Grandmother No problems noted. Paternal Grandfather Lung cancer Maternal Aunt Breast cancer Maternal Uncle Prostate cancer Social History Housing: House Alcohol intake: current Alcohol intake frequency: holidays/special occasions only Comment: last time november 2023 states stopped (03/2024) Patient Tobacco Use Status: Former Tobacco user Tobacco use type: Cigarette Years Smoked: quit 2015 marijuana e-Cigarette/Vaping Use: Never Used Second Hand Smoke Exposure: Yes service: No Current occupational status: employed Current occupation: rt hand dominant Cognitive needs: No Hearing needs: No Vision needs: Yes Review of Systems Const Denies weight gain and Denies weight loss ENT Reports no additional complaints, Denies dysphagia and Denies odynophagia Card Reports no additional complaints Resp Reports no additional complaints GI Denies abdominal pain, Denies belching, Denies melena, Denies bloating, Denies change in bowel habits, Denies dysphagia, Denies excessive flatus, Denies dyspepsia, Denies heartburn, Denies diarrhea, Denies loose stools, Denies nausea, Denies odynophagia and Denies vomiting Reports no additional complaints Musc Reports no additional complaints Neuro Reports no additional complaints Psych Reports no additional complaints Endo Reports no additional complaints Physical Exam Vital Signs: Last Vital Signs Pulse 64 11/27/24 16:38 BP 130/60 11/27/24 16:38 Pulse Ox 98 11/27/24 16:38 Oxygen Delivery Method Room Air 11/27/24 16:38 BMI result Body Mass Index 26.2 Const General: healthy appearing, no acute distress and well developed Nutritional Appearance: well nourished Orientation/consciousness: patient oriented x3 Resp Effort & Inspection: normal respiratory effort, able to speak in complete sentences, no tracheal deviation and symmetric chest movement Auscultation: clear to auscultation bilaterally Cardio Rate: regular rate GI Inspection: Yes normal to inspection and No distended Palpation (GI): Soft to palpation, not firm, nontender and No hepatosplenomegaly present Auscultation: normal bowel sounds General: Yes no CVA tenderness Back/Spine/Pelvis Back: no CVA tenderness Skin General skin exam: elasticity normal, turgor normal and dry skin Neuro General: patient oriented x3 Psych Appearance: grossly normal Mental Status: mental status grossly normal Assessment & Plan Assessment & Plan (1) Barretts esophagus: Code(s): K22.70 - Chang's esophagus without dysplasia Category: Medical Qualifiers: Chang's esophagus type: without dysplasia Qualified Code(s): K22.70 - Chang's esophagus without dysplasia (2) GERD (gastroesophageal reflux disease): Code(s): K21.9 - Gastro-esophageal reflux disease without esophagitis Category: Medical Qualifiers: Esophagitis presence: esophagitis presence not specified Qualified Code(s): K21.9 - Gastro-esophageal reflux disease without esophagitis (3) Postprandial diarrhea: Code(s): K52.9 - Noninfective gastroenteritis and colitis, unspecified (4) Postprandial abdominal bloating: Code(s): R14.0 - Abdominal distension (gaseous) (5) Abdominal pain: Code(s): R10.9 - Unspecified abdominal pain Qualifiers: Abdominal location: generalized Qualified Code(s): R10.84 - Generalized abdominal pain Plan Patient tried fiber supplements in the gummy form and did not tolerated and related not see any difference. Patient can try fiber supplement as like Benefiber powder or Metamucil Powder and see if that will make a difference. Avoid dietary triggers continue following low FODMAP diet. Continue omeprazole daily. Message sent to Surgical schedules to book upper endoscopy before luc ent. Patient continues to have postprandial diarrhea, abdominal pain, postprandial abdominal bloating, will send him for diagnostic colonoscopy. Patient had no issues with anesthesia in the past. Denies any melena, hematochezia, unintentional weight loss or ribbon like stools. What to expect before during and after procedure discussed with patient. Stressed importance of good bowel prep in clear liquid diet day before procedure. I will see him are after the procedure, sooner on as needed basis. Patient is agreeable to this plan and verbalizes understanding of instructions. He was given the opportunity to ask questions and all questions answered. Thank you for allowing me to participate in his care Medications: New bisacodyl (Dulcolax (bisacodyl)) take 4 tabs at noon the day before your colonoscopy 20 mg (4 x 5 mg) PO ONCE 1 day 4 tabs 0RF Z12.11 - Encounter for screening for malignant neoplasm of colon polyethylene glycol 3350 (Miralax) As directed by gastroenterology department at [facility] 238 grams PO ONCE 238 grams 0RF Z12.11 - Encounter for screening for malignant neoplasm of colon Coding Level of Care Code Est Pt Level 4 (58717) Complex EM visit Add On G2211 Diagnoses Chang's esophagus without dysplasia K22.70 Chang's esophagus type: without dysplasia Gastroesophageal reflux disease, unspecified whether esophagitis present K21.9 Esophagitis presence: esophagitis presence not specified Postprandial diarrhea K52.9 Postprandial abdominal bloating R14.0 Generalized abdominal pain R10.84 Abdominal location: generalized Time Spent (min) 35 Comment 25 minutes spent with patient and additional 10 minutes spent reviewing his records
[2024-11-27 16:38] VITALS: BP 130/60; PULSE 64; O2SAT 98; BMI 26.2
--- OUTSIDE RECORDS SUMMARY | 2024-11-27 18:50 | XMS_ITS | Clinical Summary ---
Author Organization [facility] Address [address] [place] [address] Phone Care Team Providers Care Cone Cleaner Name Role Phone María Cox MD Primary Care Provider [phone] Immunizations Immunization Administration Dates Next Due DTP 02/27/1995, 4,01/18/1994, 994 DTaP 5 11/13/1998 H1N1 07/18/2009 HPV, Quadrivalent 09/04/2014 Hep A, Adult 09/04/2014 Hep B, ped/adol 03/30/1994,1993,1993 Hib (PRP-T) 02/09/1995, 4,01/18/1994, 994 Influenza Split 05/19/2011 Influenza, injectable, trivalent 07/18/2009,05/30 Influenza, intranasal, trivalent 06/01/2010 MMR 01/14/1998,10/27/1994 Meningococcal Conj (Menactra) MCV4P 04/05/2006 OPV 11/13/1998, 4,01/18/1994, 994 Tdap 03/16/2012,04/05/2006 Varicella 01/02/2009,12/31/1996 Family History Relation Name Status Comments Father Alive Father: Alive a nd well Maternal Grandmother Materna l grandmother: , cancer Mother Alive Mother: Alive a nd well Paternal Grandmother Paterna l grandmother: Diabetes mellitus Social History Tobacco Use Types Packs/Day Years Used Date Smoking Tobacco: Never Comments:Never smoker Sex and Gender Information Value Date Recorded Sex Assigned at Not on file Legal Sex Male 4:47 PM EDT Gender Identity Not on file Sexual Orientation Not on file Last Filed Vital Signs Vital Sign Reading Time Taken Comments Blood Pressure 129/84 09/04/2014 12:00 AM EST Pulse 86 03/16/2013 12:00 AM EDT Temperature 37.3 ??C (99.2 ??F) 03/16/2013 12:00 AM E DT Respiratory Rate - - Oxygen Saturation - - Inhaled Oxygen Concentration - - Weight 74.8 kg (165 lb) 09/04/2014 12:00 AM EST Height 165.6 cm (5' 5.2 ) 09/04/2014 12:00 AM ES T Body Mass Index 27.29 09/04/2014 12:00 AM EST Plan of Treatment Health Maintenance Due Date Last Done Comments HPV Vaccines (2 - Male 3-dose series) 10/02/2014 09/04/2014 DTaP,Tdap,and Td Vaccines (8 - Td or Tdap) 03/16/2022 03/16/2012, 04/05/2006, 11/13/1998, Additional history exists Influenza Vaccines (#1) 2024 05/19/20 11, 06/01/2010, 07/18/2009, Additional history exists COVID-19 Vaccine ( season) 2024 Hepatitis B Vaccines Completed 03/30/1994, 1993, 1993 HIB Vaccines Completed 02/09/1995, 09/1993, 01/18/1994, Additional history exists MMR Vaccines Completed 01/14/1998, 10/27/1994 IPV Vaccines Completed 11/13/1998, 09/1993, 01/18/1994, Additional history exists Meningococcal Vaccine Aged Out 04/05/2006 No danni toña eligible based on patient's age to complete this topic Varicella Vaccines Completed 01/02/2009, 12/31/1996 Hepatitis A Vaccines Aged Out 09/04/2014 No long er eligible based on patient's age to complete this topic Men B Vaccine Aged Out No longer elig ible based on patient's age to complete this topic Pneumococcal Vaccine Aged Out No long er eligible based on patient's age to complete this topic Care Teams Cone Cleaner Relationship Specialty Start Date End Date María Cox MD [address] [facility] [place] [address] PCP - General 04/08/17
--- OUTSIDE RECORDS SUMMARY | 2024-11-27 18:50 | XMS_ITS | Encounter Summary ---
Author Organization [facility] Address [address] [place] [address] Phone Care Team Providers Care Legal Biller Name Role Phone María Cox MD Primary Care Provider [phone] Encounter Details Date Type Department Care Team (Late st Contact Info) Description 04/14/2017 Conversion Encounter [facility] [place] [address] [place] [address] Social History Tobacco Use Types Packs/Day Years Used Date Smoking Tobacco: Never Comments:Never smoker Sex and Gender Information Value Date Recorded Sex Assigned at Not on file Legal Sex Male 4:47 PM EDT Gender Identity Not on file Sexual Orientation Not on file documented as of this encounter Plan of Treatment Not on file documented as of this encounter Visit Diagnoses Not on filedocumented in this encounter Care Teams Legal Biller Relationship Specialty Start Date End Date María oCx MD [address] [place] [address] PCP - General 04/08/17 documented as of this encounter
--- OUTSIDE RECORDS SUMMARY | 2024-11-27 18:50 | XMS_ITS | Encounter Summary ---
Author Organization [facility] Address [address] [place] [address] Phone Care Team Providers Care Soaking Pit Operator Name Role Phone María Cox MD Primary Care Provider [phone] Encounter Details Date Type Department Care Team (Late st Contact Info) Description 03/17/2012 Documentation EM Family Medicine [address] [place] [address] Family Medicine, Physician [address] [place], [place] [id number] Social History Tobacco Use Types Packs/Day Years Used Date Smoking Tobacco: Never Assessed Sex and Gender Information Value Date Recorded Sex Assigned at Not on file Legal Sex Male 4:47 PM EDT Gender Identity Not on file Sexual Orientation Not on file documented as of this encounter Plan of Treatment Not on file documented as of this encounter Visit Diagnoses Not on filedocumented in this encounter Care Teams Soaking Pit Operator Relationship Specialty Start Date End Date María Cox MD [address] [place] [address] [place] [address] PCP - General 04/08/17 documented as of this encounter
== END 2024-11-27 18:25 ==
LOC: HO.HGI 16:26
PROVIDERS: PCP Internal Medicine; Visit Provider Nurse Practitioner Family
DX: K22.70 Barrett's esophagus without dysplasia (principal); K21.9 Gastro-esophageal reflux disease without esophagitis; K52.9 Noninfective gastroenteritis and colitis, unspecified; R14.0 Abdominal distension (gaseous); R10.84 Generalized abdominal pain
CPT/HCPCS: 99214; G2211

== ENCOUNTER → 2024-11-27 16:25 | Outpatient (BNVA) | payer OTHER, SELFPAY | PROVIDERS: PCP Internal Medicine; Visit Provider Nurse Practitioner Family | DX: K22.70 Barrett's esophagus without dysplasia (principal); K21.9 Gastro-esophageal reflux disease without esophagitis; K52.9 Noninfective gastroenteritis and colitis, unspecified; R14.0 Abdominal distension (gaseous); R10.84 Generalized abdominal pain | CPT/HCPCS: 99212 ==

== ENCOUNTER 2025-04-24 14:13 | Outpatient (AMB) | payer OTHER, SELFPAY ==
[2025-04-24 14:25] VITALS: BP 110/66; PULSE 78; O2SAT 99; BMI 27.4
--- NOTE | 2025-04-24 14:25 | MHC.PC.OV ---
Vital Signs 04/24/25 14:25 Height 5 ft 6 in Weight 170 lb BMI 27.4 BP 110/66 Blood Pressure Location Lt brachial Position Sitting Pulse 78 Pulse Oximetry (%) 99 Oxygen Delivery Method Room Air Intake Visit Reasons: PHYSICAL Rewinder Operator Helper Required: No Accompanied by: Self / Same As Patient Allergies Sulfa (Sulfonamide Antibiotics) Allergy (Unknown, Verified 04/24/25 14:25) unknown Medication List - Last Reconciled 04/24/25 by Tripp Hernandez MD albuterol sulfate 90 mcg/actuation (ProAir HFA) 2 puffs inhalation QID PRN creatine monohydrate mg PO loperamide (Imodium A-D) 2 mg PO Q6H PRN omeprazole 20 mg PO DAILY Tobacco use date assessed: 04/24/25 Dental Screening Dental Screen Date: 04/24/25 Did you have a dental visit in the last 12 months?: Yes Did you have a dental problem in the last 6 months where you did not have access to dental care?: No Was dental information given to patient?: Patient has dentist [facility] Medical History Cervical disc disease Myofascial pain Asthma Overweight (BMI 25.0-29.9) Fracture of left distal radius Surgical History History of esophagogastroduodenoscopy (EGD) [place] teeth removed Family History (Updated 04/24/25 @ 14:46 by Tripp Hernandez MD) Father Lung cancer Mother Skin cancer Sister No problems noted. Sister No problems noted. Sister No problems noted. Maternal Grandmother No problems noted. Paternal Grandfather No problems noted. Maternal Aunt Breast cancer Maternal Uncle Prostate cancer Paternal Grandmother Lung cancer Other Colon cancer Social History (Updated 04/24/25 @ 14:47 by Tripp Hernandez MD) Housing: House Alcohol intake: current Alcohol intake frequency: holidays/special occasions only Comment: last time november 2023 states stopped (03/2024)2x a week 2-3 drinks (03/2025) Patient Tobacco Use Status: Former Tobacco user Tobacco use type: Cigarette Years Smoked: quit 2015 marijuana e-Cigarette/Vaping Use: Never Used Second Hand Smoke Exposure: Yes service: No Current occupational status: employed Current occupation: rt hand dominant Cognitive needs: No Hearing needs: No Vision needs: Yes Questionnaire PHQ-9 Over the last 2 weeks, how often have you been bothered by any of the following problems? 1. Little interest or pleasure in doing things: not at all 2. Feeling down, depressed, or hopeless: not at all 3. Trouble falling or staying asleep, or sleeping too much: several days 4. Feeling tired or having little energy: several days 5. Poor appetite or overeating: not at all 6. Feeling bad about yourself - or that you are a failure or have let yourself or your family down: not at all 7. Trouble concentrating on things, such as reading the newspaper or watching television: not at all 8. Moving or speaking so slowly that other people could have noticed. Or the opposite - being so fidgety or restless that you have been moving around a lot more than usual: not at all 9. Thoughts that you would be better off or of hurting yourself in some way: not at all Total score: 2 56309 - PHQ-9 Billing: Yes Source: Developed by Drs. Ferdinand Lee, Lizet Murillo, Carlitos Sam and colleagues, with an educational laurel from [employer]. Thrive Questionnaire Date Thrive assessed: 04/24/25 I am a: Patient What is your living situation today?: I have a steady place to live Within the past 12 months, did the food you bought not last and you didn't have the money to get more?: I choose not to answer this question Within the past 12 months, did you worry whether your food would run out before you got money to buy more?: I choose not to answer this question Do you have trouble paying for medicines?: I choose not to answer this question Do you have trouble getting transportation to medical appointments?: No Do you have trouble paying your heating and electricity bill?: I choose not to answer this question Do you have trouble taking care of your child, family member or friend?: I choose not to answer this question Do you have trouble with day-to-day activities such as bathing, preparing meals, shopping, managing finances, etc.?: I choose not to answer this question Are you currently unemployed and looking for a job?: No Are you interested in more education?: No Please select the resources that you would like help with: Food Currently or been in a relationship where the following occur: No concerns reported THRIVE Score: 0 AUDIT C Alcohol Use Questionnaire (AUDIT-C) 1. How often do you have a drink containing alcohol?: 2-3 times a week 2. How many drinks containing alcohol do you have on a typical day when you are drinking?: 1 or 2 3. How often do you have six or more drinks on one occasion?: Less than monthly Total Score: 4 IVET-7 AMB Questionnaire IVET-7 Date IVET - 7 assessed: 04/24/25 Feeling nervous, anxious, or on edge: 1 = Several days Not being able to stop or control worryin = Several days Worrying too much about different things: 0 = Not at all Trouble relaxin = Several days Being so restless that it is hard to sit still: 0 = Not at all Becoming easily annoyed or irritable: 2 = More than half the days Feeling afraid as if something awful might happen: 0 = Not at all Total IVET-7 score (0-4 normal; 5-9 mild; 10-14 moderate; 15-21 severe): 5 Source: Developed by Drs. Ferdinand Lee, Lizet Murillo, Carlitos Sam and colleagues, with an educational laurel from [employer]. IVET-7 Assessment Billing IVET-7 Assessment Tool: IVET-7 Assessment 24751 Review of Systems Const Denies poor appetite and Denies weakness Eyes Denies no additional complaints ENT Reports Normal hearing present, Denies dizziness, Denies nasal congestion, Denies tinnitus and Denies sore throat Card Denies chest pain, Denies syncope, Denies rapid heart rate and Denies dyspnea Resp Denies cough and Denies dyspnea GI Denies change in stool character, Reports constipation, Denies diarrhea, Denies nausea and Denies vomiting Denies dysuria and Denies urinary frequency Neuro Reports Normal hearing present, Denies confusion, Denies dizziness, Denies syncope and Denies weakness Psych Denies confusion Physical exam (Primary Care) Vital Signs: Last Vital Signs Pulse 78 04/24/25 14:25 BP 110/66 04/24/25 14:25 Pulse Ox 99 04/24/25 14:25 Oxygen Delivery Method Room Air 04/24/25 14:25 BMI result Body Mass Index 27.4 Tobacco/Smoking Status: Tobacco use Status Tobacco use date assessed 04/24/25 04/24/25 14:30 Patient Tobacco Use Status Former Tobacco user 04/24/25 14:47 Tobacco use type Cigarette 04/24/25 14:47 e-Cigarette/Vaping Use Never Used 04/24/25 14:47 PHQ-9: PHQ-9 Score PHQ-9: Total score 2 04/24/25 16:52 Thrive Assessment: Date of Thrive Assessment Date Thrive assessed 04/24/25 04/24/25 14:30 Currently or been in a relationship where the following occur: No concerns reported Const General: No confusion Orientation/consciousness: No confusion HENMT Head: Yes normocephalic Ears: external ears normal and TM's normal bilaterally Face and sinus: Yes normal facial exam Mouth: moist mucous membranes Throat: Yes tonsils normal Eyes Conjunctivae: conjunctivae normal Pupils: Equal, round and reactive pupils present and Pupil accommodation reflex normal Direct Ophthalmoscopy: normal light reflex Neck Neck: No lymphadenopathy Thyroid: Thyroid normal Chest Chest palpation & inspection: normal inspection of the chest Resp Effort & Inspection: normal respiratory effort and no audible wheezes Auscultation: clear to auscultation bilaterally, no crackles, no wheezes and lung sounds not diminished Cardio Rate: regular rate Rhythm: regular rhythm Peripheral pulses: radial pulses present and dorsalis pedis present GI Palpation (GI): no masses Auscultation: normal bowel sounds and normoactive bowel sounds Rectal Exam - Male: Yes deferred Skin General skin exam: no rashes or lesions noted Rashes: no rashes Neuro General: No confusion Cranial nerves: Yes Equal, round and reactive pupils present and Yes Normal hearing present Cognition (Neuro): normal cognition Gait exam (Neuro): Normal gait present Motor exam (neuro): 5/5 motor strength present throughout Deep tendon reflexes (DTR's): Right brachioradialis reflex intensity grade: 2+, Left brachioradialis reflex intensity grade: 2+, Right patellar reflex intensity grade: 2+ and Left patellar reflex intensity grade: 2+ Extrem General: No edema Coding Level of Care Code Est Pt Prev Care 18-39y(97667) Diagnoses Annual physical exam Z00.00 Asthma J45.909 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 (2) Asthma: Code(s): J45.909 - Unspecified asthma, uncomplicated Category: Medical Plan: Continue with albuterol as needed (3) Barretts esophagus: Code(s): K22.70 - Chang's esophagus without dysplasia Category: Medical Qualifiers: Chang's esophagus type: without dysplasia Qualified Code(s): K22.70 - Chang's esophagus without dysplasia Plan: Avoid the foods that causes that usually spicy foods, tomato products, juices, coffee, soda and foods that your sensitive to. After eating do not lie down, allow 3-4 hours before in lie down. And keep the head of bed above 30 degrees to avoid the acid from going up. Patient has followed up with Gastroenterology and has a planned EGD and colonoscopy (4) Overweight (BMI 25.0-29.9): Code(s): E66.3 - Overweight Category: Medical Plan: Diet and exercise (5) Diarrhea: Code(s): R19.7 - Diarrhea, unspecified Category: Medical Qualifiers: Diarrhea type: unspecified type Qualified Code(s): R19.7 - Diarrhea, unspecified (6) Hypercholesterolemia: Code(s): E78.00 - Pure hypercholesterolemia, unspecified Category: Medical Plan History of Present Illness The patient is a 29-year-old male presenting for a physical examination and management of chronic conditions. The patient has a history of asthma, which is currently managed with an albuterol inhaler as needed, though he reports minimal use recently. He denies any recent episodes of shortness of breath or significant respiratory distress. The patient has Chang's esophagus, with the last esophagogastroduodenoscopy (EGD) performed in 2023, and he is scheduled for a follow-up endoscopy and colonoscopy. He reports occasional heartburn, managed with omeprazole, and denies any significant dysphagia or odynophagia. The patient experiences noninfectious gastroenteritis, characterized by frequent diarrhea, which he associates with certain dietary triggers such as dairy. He has been advised to increase fiber intake and modify his diet accordingly. The patient has hyperlipidemia, with a mildly elevated LDL cholesterol level of 133 mg/dL noted in his last blood work from April 2024. He has been advised on dietary modifications to manage his cholesterol levels. The patient reports a sulfa allergy, with no new medications added since his last visit. The patient reports acne on his back, which worsens with heat and sweat exposure, and he has been using benzoyl peroxide with some improvement. The patient experiences intermittent hip and shoulder pain, which he attributes to physical activity, and he has reduced certain exercises to manage the discomfort. Health Maintenance - Scheduled for follow-up endoscopy and colonoscopy - Advised dietary modifications for cholesterol management - Advised to increase fiber intake for gastroenteritis management Social History - Alcohol use: Consumes alcohol a couple of times a week, typically two to three drinks per occasion - Tobacco use: Denies cigarette smoking - Marijuana use: Occasionally uses marijuana, prefers edibles over smoking - Exercise: Engages in physical activity but has reduced certain exercises due to joint pain Review of Systems - Respiratory: Denies dyspnea, reports minimal use of albuterol inhaler - Gastrointestinal: Reports frequent diarrhea, denies nausea, vomiting, or dysphagia - Dermatological: Reports acne on back - Musculoskeletal: Reports intermittent hip and shoulder pain Physical Exam General: Cooperative, healthy appearing, comfortable, no acute distress and well developed Orientation: Patient oriented x3 Limitations: No limitations Head: Normal to inspection Ears: Hearing grossly normal bilaterally Nose: Normal external nose present Face and sinus: Normal facial exam Eyes: Appearance normal, both eyes and all related structures Neck: Normal visual inspection and Yes full ROM Respiratory: Normal respiratory effort and able to speak in complete sentences. Clear to auscultation bilaterally Cardiovascular: Regular rate and rhythm. Normal S1 and S2 GI: Normal to inspection. Soft to palpation and nontender Skin: No rashes or lesions noted, but patient reports acne on the back Neuro: Patient oriented x3 Extremities: Normal to inspection Results - Labs: Normal blood count, normal electrolytes, creatinine 1.12 mg/dL, normal blood sugar, normal hemoglobin A1c, mildly elevated LDL cholesterol at 133 mg/dL, normal B12, normal thyroid function Plan Patient was informed and verbally consented to the use of an ambient scribe for clinic note documentation during this visit. 1. Asthma The patient is advised to continue using the albuterol inhaler as needed, with no recent exacerbations reported. 2. Chang's Esophagus The patient is scheduled for a follow-up endoscopy and colonoscopy to monitor Chang's esophagus. He is advised to continue omeprazole for heartburn management. 3. Noninfectious Gastroenteritis The patient is advised to increase fiber intake and modify his diet to manage symptoms of noninfectious gastroenteritis. 4. Hyperlipidemia The patient is advised on dietary modifications to manage hyperlipidemia, with a focus on reducing LDL cholesterol levels. 5. Acne The patient is advised to continue using benzoyl peroxide for acne management and to consider dermatology referral if symptoms persist. 6. Hip And Shoulder Pain The patient is advised to modify physical activities to manage hip and shoulder pain and to monitor for any worsening symptoms. Discussion Notes During the visit, we discussed the management of the patient's chronic conditions, including asthma, Chang's esophagus, and hyperlipidemia. The patient was advised to continue using the albuterol inhaler as needed and to maintain dietary modifications to manage cholesterol levels. We also reviewed the plan for follow-up endoscopy and colonoscopy to monitor Chang's esophagus and discussed the use of omeprazole for heartburn management. Patient Instructions - Continue using albuterol inhaler as needed for asthma. - Follow dietary recommendations to manage cholesterol levels. - Attend scheduled endoscopy and colonoscopy appointments. - Use omeprazole as prescribed for heartburn. - Increase fiber intake to manage gastroenteritis symptoms. - Continue using benzoyl peroxide for acne management. - Modify physical activities to manage hip and shoulder pain. Orders: Orders Complete Blood Count Auto Diff Today E78.00 - Pure hypercholesterolemia, unspecified
--- OUTSIDE RECORDS SUMMARY | 2025-04-24 15:13 | XMS_ITS | Encounter Summary ---
Author Organization [facility] Address [address] [place] [address] Phone Care Team Providers Care Client Resource Specialist Name Role Phone María Cox MD Primary Care Provider [phone] Encounter Details Date Type Department Care Team (Late st Contact Info) Description 04/14/2017 Conversion Encounter [facility] [address] [place] [address] Social History Tobacco Use Types Packs/Day Years [...] on filedocumented in this encounter Care Teams Client Resource Specialist Relationship Specialty Start Date End Date María Cox MD [address] [place] [address] PCP - General 04/08/17 documented as of this encounter
--- OUTSIDE RECORDS SUMMARY | 2025-04-24 15:13 | XMS_ITS | Clinical Summary ---
Author Organization [facility] Address [address] [place] [address] Phone Care Team Providers Care Online Tutor Name Role Phone María Cox MD Primary Care Provider [phone] Immunizations Immunization Administration Dates Next Due DTP [...] 86 03/16/2013 12:00 AM EDT Temperature 37.3 C (99.2 F) 03/16/2013 12:00 AM EDT Respiratory Rate - - Oxygen Saturation - [...] 03/16/2022 03/16/2012, 04/05/2006, 11/13/1998, Additional history exists COVID-19 Vaccine ( season) 2024 Influenza Vaccines (#1) 2025 05/19/20 11, 06/01/2010, 07/18/2009, Additional history exists Hepatitis B Vaccines Completed 03/30/1994, 1993, 1993 [...] age to complete this topic Care Teams Online Tutor Relationship Specialty Start Date End Date María Cox MD [address] [facility] [place] [address] PCP - General 04/08/17
--- OUTSIDE RECORDS SUMMARY | 2025-04-24 15:14 | XMS_ITS | Encounter Summary ---
Author Organization [facility] Address [address] [place] [address] Phone Care Team Providers Care Financial Advocate Name Role Phone María Cox MD Primary Care Provider [phone] Encounter Details Date Type Department Care Team (Late st Contact Info) Description 03/17/2012 Documentation EM Family Medicine [address] [place] [address] Family Medicine, Physician [address] [place], [place] [address] Social History Tobacco Use Types Packs/Day Years [...] on filedocumented in this encounter Care Teams Financial Advocate Relationship Specialty Start Date End Date María Cox MD [address] [place] [address] [place] [address] PCP - General 04/08/17 documented as of this encounter
== END 2025-04-24 15:02 | disposition home or self-care (01) ==
LOC: HO.HMCH 14:14
PROVIDERS: PCP Internal Medicine; Visit Provider Internal Medicine
DX: Z00.00 Encounter for general adult medical examination without abnormal findings (principal); J45.909 Unspecified asthma, uncomplicated; K22.70 Barrett's esophagus without dysplasia; E66.3 Overweight; R19.7 Diarrhea, unspecified; E78.00 Pure hypercholesterolemia, unspecified

== ENCOUNTER → 2025-04-24 14:13 | Outpatient (BNVA) | payer OTHER, SELFPAY | PROVIDERS: PCP Internal Medicine; Visit Provider Internal Medicine | DX: Z00.00 Encounter for general adult medical examination without abnormal findings (principal); J45.909 Unspecified asthma, uncomplicated; K22.70 Barrett's esophagus without dysplasia; E66.3 Overweight; E78.00 Pure hypercholesterolemia, unspecified; K52.9 Noninfective gastroenteritis and colitis, unspecified; E78.5 Hyperlipidemia, unspecified; L70.9 Acne, unspecified; Z68.27 Body mass index [BMI] 27.0-27.9, adult | CPT/HCPCS: 96127; 99395 ==